=== PATIENT | female | born 1990 | race Caucasian/White ===

== ENCOUNTER → 2016-09-14 | Outpatient (CLI) | payer OTHER ==
--- NOTE | 2016-09-14 16:56 | US ---
EXAMINATION TYPE: US pelvic complete DATE OF EXAM: 09/14/2016 4:39 PM COMPARISON: NONE CLINICAL HISTORY: N83.202 Ovarian Cyst Left Side. Left pelvic pain that has since stopped since her c ycle started TECHNIQUE: TA pelvic ultrasound Date of LMP: 09/08/2016 EXAM MEASUREMENTS: Uterus: 9.6 x 4.7 x 3.3 cm Endometrial Stripe: 0.5 cm Right Ovary: 2.1 x 1.4 x 1.5 cm Left Ovary: 2.3 x 1.8 x 1.4 cm patients bladder was as full as she can get, painful 1. Uterus: Anteverted wnl 2. Endometrium: wnl 3. Right Ovary: wnl 4. Left Ovary: wnl 5. Bilateral Adnexa: wnl 6. Posterior cul-de-sac: wnl IMPRESSION: Ovaries are normal in size. No suspicious ovarian or adnexal mass identified bilaterally. Unremarkable study.
== END | disposition home or self-care (01) ==
LOC: RADUSWWP 16:29
PROVIDERS: ATTEND Family Medicine
DX: N83.202 Unspecified ovarian cyst, left side (principal)
CPT/HCPCS: 76856

== ENCOUNTER → 2016-12-03 | Outpatient (CLI) | payer OTHER ==
[2016-12-03 15:56] LABS: Basophils % (A) 0 %; CH 30.2; CHCM 32.9; Eosinophils # (A) 0.1 k/uL (0-0.7); Eosinophils % (A) 2 %; HCT 38.7 % (34.0-46.0); HDW 2.53; HGB 13.1 gm/dL (11.4-16.0); Luc % (Auto) 2; Lymphocytes # (A) 1.7 k/uL (1.0-4.8); Lymphocytes % (A) 27 %; MCH 31.1 pg (25.0-35.0); MCHC 33.8 g/dL (31.0-37.0); Mean Platelet Volume 6.7; Monocytes # (A) 0.3 k/uL (0-1.0); Monocytes % (A) 4 %; Neutrophils # (A) 4.2 k/uL (1.3-7.7); Neutrophils % (A) 66 %; RDW 12.3 % (11.5-15.5); WBC 6.5 k/uL (3.8-10.6); WBC (Perox) 7.21
== END | disposition home or self-care (01) ==
LOC: LABPAT 15:34
PROVIDERS: ATTEND Obstetrics & Gynecology
DX: Z01.812 Encounter for preprocedural laboratory examination (principal)
CPT/HCPCS: 85025

== ENCOUNTER 2016-12-10 08:50 | Day surgery (SDC) | payer OTHER ==
[2016-12-03 11:40] VITALS: BMI 33.2
[~2016-12-10 08:50] MED LIST: DEXAMETHASONE SOD PHOSPHATE 10 MG/ML 1 ML VIAL IV ONE; LIDOCAINE 1% 20 ML VIAL (10MG/ML) FOR IV START INTRADERMA PRN; ONDANSETRON 4 MG/2 ML VIAL IVP ONE; Pre Op ABX Message 1 EACH MISC MISCELLANE ONE; SCOPOLAMINE 1.5MG/72HR PATCH TRANSDERM ONE
[2016-12-10] MEDS: LACTATED RINGERS 1,000 ML IV SCH ×2 (09:26→10:26)
[2016-12-10 09:38] LABS: Glucose,Whole Blood 89 mg/dL (75-99)
--- NOTE | 2016-12-10 10:18 | P.HPOB ---
History of Present Illness H&P Date: 12/10/16 Chief Complaint: family planning Mery is [age] female who is completed her family planning desires permanent sterilization. Risks/benefits/alternatives to laps have a tubal occlusion were discussed with patient in detail and all questions are answered for her prior to proceeding to the operating room. On physical exam vital signs are stable and afebrile. Heart regular, lungs clear, extremities without pain. Pelvic exam is unremarkable. Abdomen soft and nontender positive bowel sounds are noted. Assessment family planning. Plan laparoscopic tubal occlusion with Filshie clips. Past Medical History Past Medical History: Thyroid Disorder Additional Past Medical History / Comment(s): hx hypoactive thyroid- no meds now History of Any Multi-Drug Resistant Organisms: None Reported Past Surgical History: No Surgical Hx Reported Additional Past Surgical History / Comment(s): wisdom teeth Smoking Status: Never smoker - Past Family History Sister(s) Family Medical History: Neurologic Disorder, Seizure Disorder Additional Family Medical History / Comment(s): cerebral palsy Mother Family Medical History: Diabetes Mellitus, Hypertension, Seizure Disorder Medications and Allergies Home Medications Medication Instructions Recorded Confirmed Type Ibuprofen [Motrin] 800 mg PO TID PRN 12/03/16 12/10/16 History Allergies Allergy/AdvReac Type Severity Reaction Status Date / Time adhesive Allergy Rash/Hives Verified 12/10/16 09:01 Exam Osteopathic Statement: *. No significant issues noted on an osteopathic structural exam other than those noted in the History and Physical/Consult. - Vital Signs Vital signs: Vital Signs Temp Pulse Resp BP Pulse Ox 12/10/16 09:12 98.6 F 74 18 113/62 97
[2016-12-10] MEDS ORDERED: MIDAZOLAM 2 MG/2 ML VIAL ONE (10:23)
[2016-12-10] MEDS ORDERED: VECURONIUM 10 MG VIAL IV ONE (10:23)
[2016-12-10] MEDS ORDERED: PROPOFOL 10 MG/ML 20 ML VIAL IV ONE (10:23)
[2016-12-10] MEDS ORDERED: NEOSTIGMINE 1 MG/ML 10 ML VIAL ONE (10:23)
[2016-12-10] MEDS ORDERED: ROCURONIUM BROMIDE 10 MG/ML 10 ML VIAL IV ONE (10:23)
[2016-12-10] MEDS ORDERED: fentaNYL (PF) 50 MCG/ML 2 ML AMP ONE (10:23)
[2016-12-10] MEDS ORDERED: LIDOCAINE 1% INJ 10MG/ML (20 ML MDV) ONE (10:23)
[2016-12-10] MEDS ORDERED: GLYCOPYRROLATE 0.2 MG/ML 2 ML VIAL ONE (10:23)
[2016-12-10] MEDS ORDERED: KETOROLAC 30 MG/ML 1 ML VIAL ONE (10:23)
[2016-12-10] MEDS ORDERED: BUPIVACAINE (PF) 0.25% 30 ML VIAL SQ ONE (10:30)
--- NOTE | 2016-12-10 10:57 | P.OP ---
Date of Procedure: 12/10/16 Preoperative Diagnosis: Family planning Postoperative Diagnosis: Same Procedure(s) Performed: Laparoscopic tubal occlusion with Filshie clips Implants: Anesthesia: BRENTA Surgeon: Beny Li Estimated Blood Loss (ml): 5 Pathology: none sent Condition: stable Disposition: same day Indications for Procedure: Operative Findings: Normal female anatomy Description of Procedure: Patient was taken to the operating suite where a general anesthetic was found be adequate. She was prepped and draped in the normal sterile fashion placed in dorsal lithotomy position. Initially a speculum was inserted into the vagina and the anterior lip cervix identified and grasped with an Allis clamp. Uterus then sounded 8 cm and a manipulator was inserted without difficulty. Red rubber catheters in used to drain the bladder urine and the remainder of the instruments were removed from vagina. Gloves were changed and attention was turned to the abdominal portion procedure. Approximately 2 mL of quarter percent Marcaine was then injected periumbilically through this injected anesthetic a 5 mm skin incision was made. Through this incision under direct visualization with an optical trocar and sleeve the camera was inserted. Once peritoneal placement was assured gas was left fully insufflate the abdomen and patient was then placed in steep Trendelenburg position. A second 8 mm skin incision was then made in the midline 3 cm above the pubic since this. Second port and sleeve were inserted through that incision again under direct visualization. Uterus was then elevated and patient was fallopian tubes were identified. First the right tube than the left tube had a Filshie clip applied proxy 2-3 cm from uterine cornu. No bleeding is noted from the mesosalpinx therefore instruments are removed and gas allowed to expel from the abdomen. 5 deep breaths were provided during this process. 4-0 Vicryl was then used to close the incision subcuticularly and the remaining 8 mL of quarter percent Marcaine were injected around the incisions. Instruments are then removed from the vagina. Sponge, lap, needle counts were all correct 2. Patient was then taken to the recovery room in stable and satisfactory condition. Plan - Discharge Summary New Discharge Prescriptions: New Acetaminophen-Codeine 300-30mg [Tylenol #3] 1 tab PO Q4H PRN #30 tablet PRN Reason: Pain Ibuprofen [Motrin] 600 mg PO Q6HR PRN #30 tab PRN Reason: Pain No Action Ibuprofen [Motrin] 800 mg PO TID PRN PRN Reason: Pain Discharge Medication List Ibuprofen [Motrin] 800 mg PO TID PRN 12/03/16 [History] Acetaminophen-Codeine 300-30mg [Tylenol #3] 1 tab PO Q4H PRN #30 tablet [Rx] Ibuprofen [Motrin] 600 mg PO Q6HR PRN #30 tab 12/10/16 [Rx] Follow up Appointment(s)/Referral(s): Beny Li DO [Doctor of Osteopathic Medicine] - 1 Week Activity/Diet/Wound Care/Special Instructions: No heavy lifting, limit stairs and driving, and pelvic rest. If any high temperatures, heavy bleeding, or severe pain call my office
[2016-12-10 11:17] VITALS: TEMP 97.5
[2016-12-10] MEDS: HYDROmorphone 1 MG/ML 1 ML SYRINGE IVP PRN ×2 (11:26→11:50)
[2016-12-10] MEDS ORDERED: MEPERIDINE 50 MG/ML SYRINGE IVP ONE (11:55)
[2016-12-10 12:26] VITALS: RESP 16
[2016-12-10] MEDS ORDERED: Acetaminophen-Codeine 300-30mg TAB PO ONE (12:50)
[2016-12-10 14:31] VITALS: BP 114/76; PULSE 85
== END 2016-12-10 14:58 | disposition home or self-care (01) ==
LOC: OR 08:50
PROVIDERS: ATTEND Obstetrics & Gynecology
DX: Z30.2 Encounter for sterilization (principal); Z91.09 Other allergy status, other than to drugs and biological substances
CPT/HCPCS: 81025; 58671; J2250; J1100; J2710; J2175; J2405; J2001; J3010; J1885; J1170; J2704

== ENCOUNTER 2017-06-08 09:12 | Emergency (ER) | payer OTHER ==
[2017-06-08 09:35] VITALS: BP 131/63; PULSE 80; RESP 20; TEMP 98.5
--- NOTE | 2017-06-08 10:21 | ED ---
General Adult HPI - General Chief complaint: Skin/Abscess/Foreign Body Stated complaint: Rash Time Seen by Provider: 06/08/17 10:11 Source: patient Mode of arrival: ambulatory Limitations: no limitations - History of Present Illness Initial comments: This 26-year-old white female presents with a complaint of a skin rash underneath her right arm proximally which is been present for approximately 3 days. There's been minimally itchy. It is consistent with her previous ringworm which she had several years ago. She denies any other rash. No other complaints or modifying factors. - Related Data Home Medications Medication Instructions Recorded Confirmed Ibuprofen [Motrin] 800 mg PO TID PRN 12/03/16 12/10/16 Previous Rx's Medication Instructions Recorded Acetaminophen-Codeine 300-30mg 1 tab PO Q4H PRN #30 tablet 12/10/16 [Tylenol #3] Ibuprofen [Motrin] 600 mg PO Q6HR PRN #30 tab 12/10/16 Econazole 1% Cream [Spectazole] 1 applic TOPICAL BID #15 gram 06/08/17 Allergies Allergy/AdvReac Type Severity Reaction Status Date / Time adhesive Allergy Rash/Hives Verified 06/08/17 09:35 Review of Systems ROS Statement: Those systems with pertinent positive or pertinent negative responses have been documented in the HPI. ROS Other: All systems not noted in ROS Statement are negative. Past Medical History Past Medical History: Thyroid Disorder Additional Past Medical History / Comment(s): hx hypoactive thyroid- no meds now History of Any Multi-Drug Resistant Organisms: None Reported Past Surgical History: Tubal Ligation Additional Past Surgical History / Comment(s): wisdom teeth Past Psychological History: Bipolar, Depression Smoking Status: Never smoker Past Alcohol Use History: None Reported Past Drug Use History: None Reported - Past Family History Sister(s) Family Medical History: Neurologic Disorder, Seizure Disorder Additional Family Medical History / Comment(s): cerebral palsy Mother Family Medical History: Diabetes Mellitus, Hypertension, Seizure Disorder General Exam Limitations: no limitations Skin exam: Present: intact, rash (There is a 3 cm area of mild erythema with well circumscribed borders consistent with ringworm present in the right proximal medial arm.) Course Vital Signs 06/08/17 09:33 Temperature 98.5 F Pulse Rate 80 Respiratory 20 Rate Blood Pressure 131/63 O2 Sat by Pulse 97 Oximetry Medical Decision Making - Medical Decision Making The patient was seen and examined. It is felt as though her rash was consistent with ringworm. She is counseled regarding this and leaves in no distress. Disposition Clinical Impression: Tinea corporis Disposition: HOME SELF-CARE Condition: Good Instructions: Tinea Corporis (ED) Prescriptions: Econazole 1% Cream [Spectazole] 1 applic TOPICAL BID #15 gram Referrals: Luan Lee MD [Primary Care Provider] - 1-2 days Time of Disposition: 10:21
== END 2017-06-08 10:45 | disposition home or self-care (01) ==
LOC: EC 09:12
DX: B35.4 Tinea corporis (principal); Z91.09 Other allergy status, other than to drugs and biological substances
CPT/HCPCS: 99282

== ENCOUNTER 2017-09-26 07:54 | Emergency (ER) | payer OTHER ==
[2017-09-26 08:01] VITALS: BP 116/63; PULSE 71; RESP 18; TEMP 97.6
[2017-09-26] MEDS ORDERED: AMOXICILLIN 500MG STARTER PACK 3 CAP BTL PO STA (08:21)
--- NOTE | 2017-09-26 08:21 | ED ---
ENT HPI - General Chief complaint: ENT Stated complaint: Sore throat Time Seen by Provider: 09/26/17 08:05 Source: patient, RN notes reviewed Mode of arrival: ambulatory Limitations: no limitations - History of Present Illness Initial comments: 27-year-old female emergency from she complaint of sore throat. Patient states started yesterday progressively getting worse. Patient states she feels swollen as painful to swallow but no difficulty denies any shortness breath denies any nasal congestion, headache or dizziness. Patient had no prior tonsillectomy. Denies any nausea vomiting diarrhea constipation. - Related Data Previous Rx's Medication Instructions Recorded Amoxicillin 500 mg PO Q8H #30 capsule 09/26/17 Allergies Allergy/AdvReac Type Severity Reaction Status Date / Time adhesive Allergy Rash/Hives Verified 09/26/17 08:01 Review of Systems ROS Statement: Those systems with pertinent positive or pertinent negative responses have been documented in the HPI. ROS Other: All systems not noted in ROS Statement are negative. Past Medical History Past Medical History: Thyroid Disorder Additional Past Medical History / Comment(s): hx hypoactive thyroid- no meds now History of Any Multi-Drug Resistant Organisms: None Reported Past Surgical History: Tubal Ligation Additional Past Surgical History / Comment(s): wisdom teeth Past Psychological History: Bipolar, Depression Smoking Status: Never smoker Past Alcohol Use History: None Reported Past Drug Use History: None Reported - Past Family History Sister(s) Family Medical History: Neurologic Disorder, Seizure Disorder Additional Family Medical History / Comment(s): cerebral palsy Mother Family Medical History: Diabetes Mellitus, Hypertension, Seizure Disorder General Exam Limitations: no limitations General appearance: alert, in no apparent distress Head exam: Present: atraumatic, normocephalic, normal inspection Eye exam: Present: normal appearance, PERRL, EOMI. Absent: scleral icterus, conjunctival injection, periorbital swelling ENT exam: Present: mucous membranes moist, TM's normal bilaterally, normal external ear exam. Absent: normal oropharynx (Erythematous posterior pharynx) Neck exam: Present: normal inspection, full ROM, lymphadenopathy. Absent: tenderness Respiratory exam: Present: normal lung sounds bilaterally. Absent: respiratory distress, wheezes, rales, rhonchi, stridor Cardiovascular Exam: Present: regular rate, normal rhythm, normal heart sounds. Absent: systolic murmur, diastolic murmur, rubs, gallop, clicks Course Vital Signs 09/26/17 07:58 Temperature 97.6 F Pulse Rate 71 Respiratory 18 Rate Blood Pressure 116/63 O2 Sat by Pulse 97 Oximetry Medical Decision Making - Medical Decision Making 37-year-old female presented for sore throat. Patient has erythema, multiple lymph nodes. Patient we treated for strep pharyngitis. Patient was started on amoxicillin return parameters were discussed. Disposition Clinical Impression: Streptococcal sore throat Disposition: HOME SELF-CARE Condition: Stable Instructions: Strep Throat (ED) Additional Instructions: Please return to the Emergency Department if symptoms worsen or any other concerns. Prescriptions: Amoxicillin 500 mg PO Q8H #30 capsule Is patient prescribed a controlled substance at d/c from ED?: No Referrals: Luan Lee MD [Primary Care Provider] - 1-2 days
== END 2017-09-26 08:32 | disposition home or self-care (01) ==
LOC: EC 07:54
DX: J02.0 Streptococcal pharyngitis (principal); Z91.048 Other nonmedicinal substance allergy status
CPT/HCPCS: 99282

== ENCOUNTER → 2017-11-08 | Outpatient (CLI) | payer OTHER ==
--- NOTE | 2017-11-09 07:37 | US ---
EXAMINATION TYPE: US pelvic complete DATE OF EXAM: 11/08/2017 COMPARISON: US CLINICAL HISTORY: R10.2 Pain in pelvic. TECHNIQUE: Transabdominal sonographic images of the pelvis were acquired. Date of LMP: EXAM MEASUREMENTS: Uterus: 9.8 x 5.5 x 5.6 cm Endometrial Stripe: 0.6 cm Right Ovary: 2.7 x 1.7 x1.9 cm Left Ovary: 2.9 x 1.5 x cm 1. Uterus: Anteverted wnl 2. Endometrium: wnl 3. Right Ovary: wnl 4. Left Ovary: wnl 5. Bilateral Adnexa: small amount of ff in right adnexa 6. Posterior cul-de-sac: wnl IMPRESSION: 1. Small amount of free fluid is seen. Otherwise unremarkable study.
== END | disposition home or self-care (01) ==
LOC: RADUSWWP 15:57
PROVIDERS: ATTEND Family Medicine
DX: R10.2 Pelvic and perineal pain (principal)
CPT/HCPCS: 76856

== ENCOUNTER → 2018-02-08 | Outpatient (CLI) | payer OTHER ==
--- NOTE | 2018-02-08 15:44 | US ---
EXAMINATION TYPE: US transvaginal DATE OF EXAM: 02/08/2018 COMPARISON: Previous dated 11/08/2017 CLINICAL HISTORY: R10.2 Pelvic and perineal pain. TECHNIQUE: Transvaginal sonographic images were ordered Date of LMP: 12/21/17 EXAM MEASUREMENTS: Uterus: 8.2 x 4.9 x 5.2 cm Endometrial Stripe: 0.7 cm Right Ovary: 3.1 x 2.4 x 1.7 cm Left Ovary: obscured by overlying bowel gas 1. Uterus: Anteverted 2. Endometrium: wnl 3. Right Ovary: wnl 4. Left Ovary: Obscured by overlying bowel gas 5. Bilateral Adnexa: wnl 6. Posterior cul-de-sac: wnl IMPRESSION: Limited exam.
== END | disposition home or self-care (01) ==
LOC: RADUSWWP 12:16
PROVIDERS: ATTEND Family Medicine
DX: R10.2 Pelvic and perineal pain (principal)
CPT/HCPCS: 76830

== ENCOUNTER → 2018-05-03 | Outpatient (CLI) | payer OTHER ==
--- NOTE | 2018-05-03 13:39 | XR ---
EXAMINATION TYPE: XR ankle complete LT DATE OF EXAM: 05/03/2018 COMPARISON: NONE HISTORY: Pain FINDINGS: Three views of the ankle demonstrate the ankle mortise to be intact and symmetric. The joint spaces are preserved. The osseous structures are intact. IMPRESSION: 1. No definite acute fracture or dislocation, if symptoms persist follow-up study in 7 to 10 days wou ld be suggested.
== END | disposition home or self-care (01) ==
LOC: RADXRMAIN 13:12
PROVIDERS: ATTEND Physician Assistant
DX: M25.572 Pain in left ankle and joints of left foot (principal)

== ENCOUNTER 2018-06-28 18:35 | Emergency (ER) | payer OTHER ==
[2018-06-28 19:11] VITALS: RESP 18
[2018-06-28 20:45] LABS: Appearance,Urine Cloudy (Clear); Bilirubin,Urine Negative (Negative); Blood,Urine Trace (Negative); Color,Urine Yellow; Glucose,Urine (UA) Negative (Negative); Ketones,Urine Negative (Negative); Leukocyte Esterase,Urine Large (Negative); Mucus,Urine Many /hpf; Nitrite,Urine Negative (Negative); PH, Urine 6.5 (5.0-8.0); Protein,Urine Trace (Negative); RBC,Urine 16 /hpf (0-5); Specific Gravity,Urine 1.024 (1.001-1.035); Squamous Epithelial Cell,Urine 17 /hpf (0-4); Urobilinogen,Urine <2.0 mg/dL (<2.0)
--- NOTE | 2018-06-28 21:04 | ED ---
Female Urogenital HPI - General Chief complaint: Urogenital Stated complaint: Vaginal itch and odor Time Seen by Provider: 06/28/18 19:44 Source: patient, RN notes reviewed Mode of arrival: ambulatory Limitations: no limitations - History of Present Illness Initial comments: 27-year-old female presented emergency from with chief complaint of vaginal itching, vaginal discharge. This has been present for last 2 weeks has an appointment next week ago joint but cannot week. Patient states she is on control secondary to endometriosis. This is new for her. Patient denies any concern for STDs. Patient denies any dysuria hematuria. Last Menstrual Period: 06/10/18 - Related Data Home Medications Medication Instructions Recorded Confirmed [place] 28 1 tab PO DAILY 06/28/18 06/28/18 Previous Rx's Medication Instructions Recorded Fluconazole [Diflucan] 150 mg PO ONCE #2 tab 06/28/18 metroNIDAZOLE [Flagyl] 500 mg PO TID #21 tab 06/28/18 Allergies Allergy/AdvReac Type Severity Reaction Status Date / Time adhesive Allergy Rash/Hives Verified 06/28/18 20:57 Review of Systems ROS Statement: Those systems with pertinent positive or pertinent negative responses have been documented in the HPI. ROS Other: All systems not noted in ROS Statement are negative. Past Medical History Past Medical History: Thyroid Disorder Additional Past Medical History / Comment(s): hx hypoactive thyroid- no meds now History of Any Multi-Drug Resistant Organisms: None Reported Past Surgical History: Tubal Ligation Additional Past Surgical History / Comment(s): wisdom teeth Past Psychological History: Bipolar, Depression Smoking Status: Never smoker Past Alcohol Use History: None Reported Past Drug Use History: None Reported - Past Family History Sister(s) Family Medical History: Neurologic Disorder, Seizure Disorder Additional Family Medical History / Comment(s): cerebral palsy Mother Family Medical History: Diabetes Mellitus, Hypertension, Seizure Disorder General Exam Limitations: no limitations General appearance: alert, in no apparent distress Neck exam: Present: normal inspection. Absent: tenderness, meningismus, lymphadenopathy Respiratory exam: Present: normal lung sounds bilaterally. Absent: respiratory distress, wheezes, rales, rhonchi, stridor Cardiovascular Exam: Present: regular rate, normal rhythm, normal heart sounds. Absent: systolic murmur, diastolic murmur, rubs, gallop, clicks GI/Abdominal exam: Present: soft, normal bowel sounds. Absent: distended, tenderness, guarding, rebound, rigid External exam: Present: normal external exam, other (Exam performed with RN) Speculum exam: Present: vaginal discharge Course Vital Signs 06/28/18 19:07 Temperature 98.3 F Pulse Rate 84 Respiratory 18 Rate Blood Pressure 117/74 O2 Sat by Pulse 99 Oximetry Medical Decision Making - Medical Decision Making 27-year-old female presented for vaginal itching discharge. Patient does have some thick white discharge, concern for candidiasis. Patient also has full or with possible bacterial vaginosis secondary to recent control. Patient will be discharged return parameters were discussed. - Lab Data Lab Results 06/28/18 06/28/18 Range/Units 20:27 20:27 Urine Color Yellow Urine Appearance Cloudy H (Clear) Urine pH 6.5 (5.0-8.0) Ur Specific [place] 1.024 (1.001-1.035) Urine Protein Trace H (Negative) Urine Glucose (UA) Negative (Negative) Urine Ketones Negative (Negative) Urine Blood Trace H (Negative) Urine Nitrite Negative (Negative) Urine Bilirubin Negative (Negative) Urine Urobilinogen <2.0 (<2.0) mg/dL Ur Leukocyte Esterase Large H (Negative) Urine RBC 16 H (0-5) /hpf Ur Squamous Epith Cells 17 H (0-4) /hpf Urine Mucus Many H (None) /hpf Urine HCG, Qual Not Detected (Not Detectd) Disposition Clinical Impression: Vaginitis Disposition: HOME SELF-CARE Condition: Stable Instructions (If sedation given, give patient instructions): Bacterial Vaginosis (ED) Additional Instructions: Please return to the Emergency Department if symptoms worsen or any other concerns. Prescriptions: Fluconazole [Diflucan] 150 mg PO ONCE #2 tab metroNIDAZOLE [Flagyl] 500 mg PO TID #21 tab Is patient prescribed a controlled substance at d/c from ED?: No Referrals: Luan Lee MD [Primary Care Provider] - 1-2 days Time of Disposition: 21:03
[2018-06-28 21:32] VITALS: BP 120/80; PULSE 78; TEMP 98.2
[2018-06-29 14:55] LABS: C. trachomatis,PCR Negative (Neg,Equiv); Chlamydia trachomatis Source Vagina
[2018-06-29 15:01] LABS: N. gonorrhoeae,PCR Negative (Neg,Equiv); Neisseria Source Vagina
== END 2018-06-28 21:32 | disposition home or self-care (01) ==
LOC: EC 18:35
DX: N76.0 Acute vaginitis (principal); N80.9 Endometriosis, unspecified; Z91.09 Other allergy status, other than to drugs and biological substances; Z79.3 Long term (current) use of hormonal contraceptives; Z98.51 Tubal ligation status
CPT/HCPCS: 81001; 81025; 87070; 87086; 87205; 87491; 87591; 87808; 99283

== ENCOUNTER → 2018-09-19 | Outpatient (CLI) | payer OTHER ==
[2018-09-19 13:34] LABS: Basophils % (A) 0 %; Eosinophils # (A) 0.1 k/uL (0-0.7); Eosinophils % (A) 1 %; HCT 38.1 % (34.0-46.0); HGB 12.6 gm/dL (11.4-16.0); Lymphocytes % (A) 27 %; MCHC 33.2 g/dL (31.0-37.0); MCV 90.4 fL (80.0-100.0); Mean Platelet Volume 6.8; Monocytes # (A) 0.2 k/uL (0-1.0); Monocytes % (A) 3 %; Neutrophils % (A) 68 %; Platelet Count 292 k/uL (150-450); RBC 4.22 m/uL (3.80-5.40); RDW 13.3 % (11.5-15.5); WBC 7.4 k/uL (3.8-10.6)
== END | disposition home or self-care (01) ==
LOC: LABWHC1 13:10
PROVIDERS: ATTEND Obstetrics & Gynecology
DX: Z01.812 Encounter for preprocedural laboratory examination (principal); N94.6 Dysmenorrhea, unspecified; N94.10 Unspecified dyspareunia
CPT/HCPCS: 36415; 85025

== ENCOUNTER 2018-09-26 08:12 | Day surgery (SDC) | payer OTHER ==
[2018-09-21 13:20] VITALS: BMI 34.5
--- NOTE | 2018-09-22 16:27 | HP ---
HISTORY AND PHYSICAL DATE OF SURGERY: 09/26/2018 HISTORY OF PRESENT ILLNESS: The patient is a 28-year-old 4, para 3-1-0-4, who presented for evaluation of long-standing pelvic pain. She specifically complains of at least 6 years of fairly significant cyclic pelvic pain and has had multiple different interventions with hormonal therapy such as Implanon, which helped to some extent, but she stopped using it secondary to other side effects. She does have a tubal ligation in place at this time. She additionally tried Depo-Provera but had increasing pain with irregular bleeding. She then changed over to an oral contraceptive pill, with some improvement, but still continues to have significant pain with her periods and in the week leading up to her cycles as well. She additionally complains of pain after intercourse and had initially requested definitive therapy with hysterectomy, as tubal ligation is in place. Insurance has not allowed her to have definitive therapy at this time, and instead we have opted to proceed with diagnostic laparoscopy to evaluate for possible endometriosis and deal with any endometriotic implants found at that time. PAST MEDICAL HISTORY: Significant for: 1. Depression. 2. Possible endometriosis. 3. Hyperthyroidism. 4. Insomnia. SURGICAL HISTORY: Significant only for tubal ligation in 2017; there were no anesthetic concerns. OBSTETRICAL HISTORY: 4, para 3-1-0-4. She had 4 vaginal births, one of which was delivered at approximately 32 weeks. Current method of contraception is tubal ligation. GYNECOLOGIC HISTORY: Unremarkable except as noted in history of present illness. There is no apparent history of infections. FAMILY HISTORY: Noncontributory. SOCIAL HISTORY: The patient is and is a homemaker. She is a nonsmoker and denies any significant alcohol or any other social concerns. CURRENT MEDICATIONS: Current medications include ibuprofen and/or naproxen as well as Sprintec daily. ALLERGIES: NO KNOWN DRUG ALLERGIES. REVIEW OF SYSTEMS: Confined to history of present illness. PHYSICAL EXAMINATION: Vital signs are stable. The patient is afebrile. In general, this is a well-developed, well-nourished white female in no acute distress. HEENT demonstrates PERRLA, EOMI. Her oropharynx is clear. Her thyroid is supple and the neck is supple and without adenopathy. Her heart has a regular rhythm and rate without murmur. Her lungs are clear to auscultation bilaterally in all dominguez. Her abdomen is nondistended, has normoactive bowel sounds, soft, nontender, and without any palpable masses, hepatosplenomegaly or hernias. Her extremities are without any cyanosis, clubbing or edema and are nontender to palpation bilaterally. Her back is without spinal or CVA tenderness. Pelvic examination demonstrates normal external genitalia and BUS with normal vaginal mucosa and cervix. There is no cervical motion tenderness. The uterus is approximately 5 weeks in size, anteverted, mobile, nontender, normal in shape. The adnexa are normal and nontender without mass bilaterally. ASSESSMENT AND PLAN: 1. Chronic pelvic pain. 2. Dysmenorrhea. 3. Dyspareunia. PLAN: Given her multiple attempts with hormonal intervention with only minimal to moderate success, we will proceed with diagnostic and possible operative laparoscopy for potential ablation of endometriotic implants, should they be found. The risks and complications of the procedure have been thoroughly discussed, including the risks for bleeding, bleeding requiring transfusion, infection, and injury to local structures to include the bowel, bladder and ureters. She has understood all these risks and has agreed to proceed. We are scheduled for the morning of 09/26/2018, for the procedure as outlined above, diagnostic and possible operative laparoscopy. MMODL / IJN: [id number] /
[~2018-09-26 08:12] MED LIST changes: +HYDROmorphone 0.5 MG/0.5 ML SYRINGE IVP PRN; -Pre Op ABX Message 1 EACH MISC MISCELLANE ONE; +ceFAZolin IN SWFI 2 GM/20 ML SYRINGE IVP ONE
[2018-09-26 08:36] VITALS: TEMP 97.1
[2018-09-26] MEDS: LACTATED RINGERS 1,000 ML IV SCH ×2 (08:50→10:16)
[2018-09-26] MEDS ORDERED: SUCCINYLCHOLINE CHLORIDE 100 MG/5 ML SYR IV ONE (10:14)
[2018-09-26] MEDS ORDERED: KETOROLAC 30 MG/ML 1 ML VIAL ONE (10:14)
[2018-09-26] MEDS ORDERED: ACETAMINOPHEN IV (For NPO) 1,000 MG/100 ML VIAL ONE (10:14)
[2018-09-26] MEDS ORDERED: LIDOCAINE 1% INJ 10MG/ML (20 ML MDV) ONE (10:14)
[2018-09-26] MEDS ORDERED: MIDAZOLAM 2 MG/2 ML VIAL ONE (10:14)
[2018-09-26] MEDS ORDERED: PROPOFOL 10 MG/ML 20 ML VIAL IV ONE (10:14)
[2018-09-26] MEDS ORDERED: fentaNYL (PF) 50 MCG/ML 2 ML AMP ONE (10:14)
[2018-09-26] MEDS ORDERED: HYDROmorphone (PF) 1 MG/ML ONE (10:14)
[2018-09-26] MEDS ORDERED: BUPIVACAIN-EPI 0.5%-1:200,000 30 ML VIAL SQ ONE (10:52)
[2018-09-26] MEDS ORDERED: Acetaminophen-Codeine 300-30mg TAB PO PRN ×2 (11:05)
[2018-09-26] MEDS ORDERED: SIMETHICONE 80 MG CHEWABLE PO PRN (11:05)
[2018-09-26] MEDS ORDERED: KETOROLAC 30 MG/ML 1 ML VIAL IVP PRN (11:05)
[2018-09-26] MEDS ORDERED: diphenhydrAMINE 50 MG/ML 1 ML VIAL IVP PRN (11:05)
[2018-09-26] MEDS ORDERED: ONDANSETRON 4 MG/2 ML VIAL IVP PRN (11:05)
[2018-09-26] MEDS ORDERED: METOCLOPRAMIDE 5 MG/ML 2 ML VIAL IVP PRN (11:05)
[2018-09-26] MEDS ORDERED: IBUPROFEN 600 MG TAB PO PRN (11:05)
--- NOTE | 2018-09-26 11:12 | P.OP ---
Date of Procedure: 09/26/18 Preoperative Diagnosis: #1. Chronic pelvic pain #2. Dysmenorrhea #3. Dyspareunia Postoperative Diagnosis: Same plus #4. Probable adenomyosis Procedure(s) Performed: #1. Diagnostic laparoscopy Anesthesia: KATHRYN Surgeon: Syed Raya Estimated Blood Loss (ml): 2 IV fluids (ml): 400 Urine output (ml): 25 Pathology: none sent Condition: stable Disposition: PACU Operative Findings: Preoperative pelvic examination demonstrated a 5-6 week retroverted mobile normal uterus that was somewhat boggy in nature. Intraoperatively, the entire pelvis was explored with no evidence of endometriosis noted anywhere. There was a Filshie clip on the right fallopian tube while the left clip was missing though the the tube was clearly occluded with a gap between 2 segments. The clip was not seen anywhere in the pelvis. The ovaries were normal although the left ovary was mildly adhesed to the left sigmoid colon, an unlikely source of pain. The appendix was normal as was the small and large bowel, liver, and diaphragm. There was no pathology noted throughout the pelvis. The uterus did have a typical boggy appearance as well as to palpation with the probe. Description of Procedure: The patient was prepped and draped in usual fashion after general endotracheal anesthesia was administered by the anesthesiologist. A speculum was placed in the anterior lip the cervix grasped with a single-tooth tenaculum allowing placement of an acorn cannula for manipulation. The bladder was drained of approximately 25 mL of clear tobias urine. The patient is a potential candidate for vaginal hysterectomy as there is uterine descensus to the introitus. Attention was turned to the abdomen where a 5 mm incision was made in a pre- existing scar beneath the umbilicus allowing insertion of a 5 mm optical port un marco antonio direct visualization without difficulty. A pneumoperitoneum was then infused. Trendelenburg positioning was utilized in a site was selected in the midline approximately 4-57 m above the pubic symphysis where a pre-existing scar Y appear to a 5 mm incision was made in the transverse plane allowing insertion of a 5 mm trocar under direct visualization without difficulty. The blunt probe was utilized to sweep the bowel from the pelvis and the findings are as noted above. There was no evidence of pathology throughout. There was no evidence of any endometriosis. The uterus did have the typical boggy appearance and texture consistent with probable adenomyosis. The left ovary had a mild adhesion to the sigmoid colon which was left in place as it was not likely a source of pain. The bilateral fallopian tubes were occluded though the left Filshie clip was absent from the tube with a clear Seen between 1 blunt end of tube and the other. Expiration of the upper abdomen demonstrated no pathological findings either. All instrumentation was then removed after evacuating the pneumoperitoneum through the trochars. The skin was reapproximated with interrupted subcuticular stitches of 4-0 Vicryl followed by half-inch Steri- Strips placed with Mastisol. Each incision was infused with approximate 5 mL of half percent Marcaine with epinephrine. Estimated blood loss for the entire ca se was 2 mL or less. There were no complications. All sponge, instrument, and needle counts were correct. The patient tolerated the procedure well and proceeded to the recovery room in stable condition.
[2018-09-26] MEDS ORDERED: LACTATED RINGERS 1,000 ML IV SCH (11:15)
[2018-09-26] MEDS ORDERED: LACTATED RINGERS 1,000 ML IV ONE (11:30)
[2018-09-26 12:49] VITALS: BP 125/74; PULSE 68; RESP 18
== END 2018-09-26 12:50 | disposition home or self-care (01) ==
LOC: OR 08:12
PROVIDERS: ATTEND Obstetrics & Gynecology
DX: G89.29 Other chronic pain (principal); R10.2 Pelvic and perineal pain; N94.6 Dysmenorrhea, unspecified; N94.10 Unspecified dyspareunia; E05.90 Thyrotoxicosis, unspecified without thyrotoxic crisis or storm; F32.9 Major depressive disorder, single episode, unspecified; G47.00 Insomnia, unspecified; Z98.51 Tubal ligation status; Z79.1 Long term (current) use of non-steroidal anti-inflammatories (NSAID); Z79.3 Long term (current) use of hormonal contraceptives; Z91.09 Other allergy status, other than to drugs and biological substances
CPT/HCPCS: 81025; 49320; J2250; J1100; J2405; J2001; J3010; J1885; J1170; J0131; J0330; J2704; J0690

== ENCOUNTER → 2018-11-28 | Outpatient (CLI) | payer OTHER ==
[2018-11-28 14:31] LABS: Basophils % (A) 0 %; Eosinophils # (A) 0.1 k/uL (0-0.7); Eosinophils % (A) 1 %; HCT 36.8 % (34.0-46.0); HGB 12.1 gm/dL (11.4-16.0); Lymphocytes # (A) 1.8 k/uL (1.0-4.8); Lymphocytes % (A) 28 %; MCH 29.5 pg (25.0-35.0); MCV 89.5 fL (80.0-100.0); Mean Platelet Volume 6.8; Monocytes # (A) 0.2 k/uL (0-1.0); Monocytes % (A) 3 %; Neutrophils # (A) 4.3 k/uL (1.3-7.7); Neutrophils % (A) 67 %; Platelet Count 281 k/uL (150-450); RBC 4.11 m/uL (3.80-5.40); RDW 13.2 % (11.5-15.5); WBC 6.4 k/uL (3.8-10.6)
[2018-11-28 14:39] LABS: African American GFR (CKD) >90 (>60 ml/min/1.73 sqM); Anion Gap 10 mmol/L; Blood Urea Nitrogen 13 mg/dL (7-17); Carbon Dioxide 27 mmol/L (22-30); Chloride 102 mmol/L (98-107); Glucose 116 mg/dL (74-99); Potassium 3.8 mmol/L (3.5-5.1); Sodium 139 mmol/L (137-145)
== END | disposition home or self-care (01) ==
LOC: LABPAT 13:38
PROVIDERS: ATTEND Obstetrics & Gynecology
DX: Z01.812 Encounter for preprocedural laboratory examination (principal)
CPT/HCPCS: 36415; 80051; 82565; 82947; 84520; 85025; 87086

== ENCOUNTER 2018-12-05 07:29 | Day surgery (SDC) | payer OTHER ==
--- NOTE | 2018-12-01 11:21 | HP ---
HISTORY AND PHYSICAL DATE OF SERVICE: Dictation is done on December 01, 2018 for surgery on December 05, 2018. HISTORY OF PRESENT ILLNESS: The patient is a 28-year-old 4, para 3-1-0-4, who initially presented in consultation for a long-standing history of significant cyclic pelvic pain and severe dysmenorrhea. She has had multiple interventions including attempts at Nexplanon and as well as OCPs. She additionally tried Depo-Provera, which caused significantly increased pain and irregular bleeding. The pill provided some improvement, but still continued to have significant pain with her periods as well as ongoing dyspareunia. She has had a tubal ligation done in the past and recently underwent a diagnostic laparoscopy in an attempt to diagnose the cause. There was no evidence of endometriosis at that time, but there was what appeared to be significant adenomyosis from the shape and texture of the uterus. She has requested definitive therapy with hysterectomy and is a good candidate for a vaginal approach. PAST MEDICAL HISTORY: Significant for depression as well as hyperthyroidism and insomnia. She had a presumptive diagnosis of endometriosis, which was not confirmed at laparoscopy. PAST SURGICAL HISTORY: Significant for tubal ligation in 2017 and diagnostic laparoscopy approximately 2 months ago as noted above. There were no anesthetic concerns. OBSTETRICAL HISTORY: 4, para 3-1-0-4 with 3 term deliveries and one 32 week delivery, all of which were vaginal and without complications aside from one being in nature. Current method of contraception is tubal ligation. GYNECOLOGIC HISTORY: Unremarkable with no history of any infections to include STDs. FAMILY HISTORY: Noncontributory. SOCIAL HISTORY: The patient is and is a nonsmoker. She is a homemaker and denies any other social concerns. CURRENT MEDICATIONS INCLUDE: 1. Naproxen and/or ibuprofen as needed. 2. Sprintec on a daily basis all in attempt to control the dysmenorrhea. ALLERGIES: No known drug allergies. REVIEW OF SYSTEMS: Confined to history of present illness. PHYSICAL EXAMINATION: Vital signs are stable. The patient is afebrile. In general, this is a well- developed, well-nourished white female in no acute distress. HEENT: Demonstrates PERRLA, EOMI. NECK: Supple without adenopathy. Her heart has a regular rhythm and rate without murmur. Her lungs are clear to auscultation bilaterally in all dominguez. Her back is without spinal or CVA tenderness. Her abdomen is nondistended, has normoactive bowel sounds, soft, nontender, without any palpable masses aside from the uterine fundus. Her extremities are without any cyanosis, clubbing, or edema and are nontender to palpation bilaterally. Pelvic examination demonstrates normal external genitalia and BUS with normal vaginal mucosa and cervix. There is no cervical motion tenderness. Uterus is approximately 5 weeks in size, midline to slightly anteverted, mobile, nontender, and normal in shape. There is adequate descensus for a vaginal hysterectomy. Rectovaginal examination is deferred. ASSESSMENT AND PLAN: 1. Severe dysmenorrhea. 2. Dyspareunia: Given the longstanding nature of this discomfort as well as her history of tubal ligation and lack of desire for further childbearing, the most logical approach is definitive therapy with hysterectomy. She is a good candidate for a vaginal approach and this is the procedure that has been scheduled. The risks and complications of the procedure have been thoroughly discussed including the risks for bleeding, bleeding requiring transfusion, infection, and injury to local structures. This specifically includes risks for injury to the bowel, bladder, and ureters. We discussed the typical hospital and postoperative courses as well. She has understood all this and agreed to proceed. MMODL / IJN: [id number] /
[~2018-12-05 07:29] MED LIST changes: -HYDROmorphone 0.5 MG/0.5 ML SYRINGE IVP PRN; +ONDANSETRON 4 MG/2 ML VIAL IVP PRN; -ceFAZolin IN SWFI 2 GM/20 ML SYRINGE IVP ONE
[2018-12-05] MEDS: LACTATED RINGERS 1,000 ML IV SCH ×4 (08:35→20:03)
[2018-12-05] MEDS ORDERED: MIDAZOLAM (PF) 2 MG/2 ML VIAL IVP ONE (08:51)
[2018-12-05] MEDS ORDERED: fentaNYL (PF) 50 MCG/ML 2 ML AMP IVP ONE (08:51)
[2018-12-05] MEDS ORDERED: PROPOFOL 10 MG/ML 20 ML VIAL IV ONE (08:56)
[2018-12-05] MEDS ORDERED: SUCCINYLCHOLINE CHLORIDE 100 MG/5 ML SYR IV ONE (08:56)
[2018-12-05] MEDS ORDERED: fentaNYL (PF) 50 MCG/ML 2 ML AMP ONE (08:56)
[2018-12-05] MEDS ORDERED: MORPHINE SULFATE (PF) 0.3 MG/0.3 ML SYR ONE (08:56)
[2018-12-05] MEDS ORDERED: LIDOCAINE 1% INJ 10MG/ML (20 ML MDV) ONE (08:56)
[2018-12-05] MEDS ORDERED: VASOPRESSIN 20 UNIT/ML 1 ML VIAL IV ONE ×2 (09:07→09:34)
[2018-12-05] MEDS ORDERED: BACITRACIN 500 UNIT/GM OINT 28.4 GM TUBE TOPICAL ONE (09:07)
[2018-12-05] MEDS ORDERED: diphenhydrAMINE 50 MG/ML 1 ML VIAL IVP PRN ×2 (09:23→10:37)
[2018-12-05] MEDS ORDERED: ZOLPIDEM 5 MG TAB PO PRN (09:23)
[2018-12-05] MEDS ORDERED: Acetaminophen-Codeine 300-30mg TAB PO PRN ×2 (09:23)
[2018-12-05] MEDS ORDERED: METOCLOPRAMIDE 5 MG/ML 2 ML VIAL IVP PRN (09:23)
[2018-12-05] MEDS ORDERED: SIMETHICONE 80 MG CHEWABLE PO PRN (09:23)
--- NOTE | 2018-12-05 10:15 | P.OP ---
Date of Procedure: 12/05/18 Preoperative Diagnosis: #1. Severe dysmenorrhea #2. Dyspareunia #3. Chronic pelvic pain Postoperative Diagnosis: Same Procedure(s) Performed: Vaginal hysterectomy Anesthesia: KATHRYN Surgeon: Syed Raya Estate Manager #1: Kat Garcia Estimated Blood Loss (ml): 75 IV fluids (ml): 400 Urine output (ml): 40 Pathology: other (Uterus with cervix) Condition: stable Disposition: PACU Operative Findings: Preoperative pelvic examination reconfirmed a roughly 5 week retroverted mobile normal shaped uterus with normal adnexa bilaterally. Intraoperatively, the bilateral ovaries were seen and normal as previously noted at laparoscopy. The uterus did have the typical boggy texture consistent with probable adenomyosis. Description of Procedure: The patient was prepped and draped in usual fashion after general endotracheal anesthesia was administered by the anesthesiologist. Weighted speculum was placed and the cervix grasped with a single-tooth tenaculum after draining the bladder approximately 50 mL of clear tobias urine. The cervical vaginal mucosa was infused with diluted vasopressin solution circumferentially and then opened sharply with a scalpel. The mucosa was reflected distally both bluntly and sharply. The posterior peritoneum was identified and incised sharply with the Waddell scissors to enter the abdominal cavity. A stitch of 2-0 Vicryl was placed in the posterior peritoneum for later use. The short weighted speculum was replaced with the long weighted speculum and the mucosa further reflected bluntly. Uterosacral ligaments on each side were clamped with curved Yesica- Roxana clamps, cut, and suture-ligated with a transfixion stitch of 0 Vicryl. Serial bites were taken up the cardinal ligaments on each side using curved Yesica-Roxana clamps, each bite was cut and suture-ligated with a transfixion stitch of 0 Vicryl. After several bites on each side, the uterus was inverted posteriorly to identify the anterior peritoneum, which was opened sharply with the Bovie. This isolated the utero-ovarian pedicles on each side. Each was clamped with a curved Yesica-Roxana clamp, cut, and suture-ligated with a transfixion stitch of 0 Vicryl followed by a free tie of 0 Vicryl. On the patient's right side the clamp slipped and required placement of a second clamp behind it which controlled all bleeding and vessels. Careful examination of all of the pedicles once secured demonstrated excellent hemostasis. The long weighted speculum was replaced with a short weighted speculum and the previously placed stitch of 2-0 Vicryl was utilized to close the parietal peritoneum in a pursestring fashion. There was some moderate ongoing bleeding along the cuff edge at the right uterosacral ligament which was made mostly hemostatic with the Bovie. The bilateral uterosacral ligaments were passed through the contralateral ligament and vaginal mucosa and tied down in a modified Preciado's culdoplasty. The intervening open vaginal mucosa was closed with interrupted [id number] stitches of 0 Vicryl. Estimated blood loss for the case was approximate 75 mL. There were no complications. All sponge, instrument, and needle counts were correct. The patient tolerated the procedure well and proceeded to the recovery room in stable condition.
[2018-12-05] MEDS ORDERED: NALOXONE 0.4 MG/ML 1 ML VIAL IV PRN (10:37)
[2018-12-05] MEDS ORDERED: NALBUPHINE 10 MG/ML (1 ML AMP) IV PRN (10:37)
[2018-12-05] MEDS ORDERED: HYDROmorphone 0.5 MG/0.5 ML SYRINGE IVP PRN (10:37)
[2018-12-05 10:45] VITALS: RESP 16
[2018-12-05] MEDS: HYDROmorphone 0.5 MG/0.5 ML SYRINGE IVP PRN ×2 (10:56→11:01)
[2018-12-05] MEDS: KETOROLAC 30 MG/ML 1 ML VIAL IVP SCH ×2 (11:14→12:12)
[2018-12-05 12:00] VITALS: BMI 34.7
[2018-12-05] MEDS ORDERED: KETOROLAC 30 MG/ML 1 ML VIAL IVP PRN (18:23)
[2018-12-05] MEDS ORDERED: SENNOSIDES-DOCUSATE SODIUM 1 EACH TAB PO SCH (21:00)
[2018-12-06] MEDS: LACTATED RINGERS 1,000 ML IV SCH (06:34)
[2018-12-06 07:08] LABS: Basophils % (A) 0 %; Eosinophils % (A) 0 %; HCT 35.8 % (34.0-46.0); HGB 11.6 gm/dL (11.4-16.0); Lymphocytes # (A) 1.2 k/uL (1.0-4.8); Lymphocytes % (A) 18 %; MCH 30.2 pg (25.0-35.0); MCHC 32.6 g/dL (31.0-37.0); MCV 92.9 fL (80.0-100.0); Mean Platelet Volume 6.4; Monocytes # (A) 0.3 k/uL (0-1.0); Monocytes % (A) 5 %; Neutrophils # (A) 5.3 k/uL (1.3-7.7); Neutrophils % (A) 76 %; Platelet Count 281 k/uL (150-450); RBC 3.85 m/uL (3.80-5.40); RDW 12.5 % (11.5-15.5)
--- NOTE | 2018-12-06 07:17 | P.PN ---
Progress Note - Text Date:[12/06/2018] Time:[0708] The patient is status post vaginal hysterectomy. Vital signs stable VAS:[0-10] Patient has no complaints of pain. The patient incurred some minimal itching yesterday, this itching is now subsiding. Pain meds to be managed by service.
[2018-12-06 08:56] VITALS: BP 89/50; PULSE 71; TEMP 97.9
--- NOTE | 2018-12-06 08:57 | P.DS ---
Providers Expected date of discharge: 12/06/18 Attending physician: Syed Raya Primary care physician: Luan Lee - Discharge Diagnosis(es) (1) Chronic pelvic pain in female Current Visit: Yes Status: Acute (2) Dysmenorrhea Current Visit: Yes Status: Acute (3) Dyspareunia Current Visit: Yes Status: Acute Hospital Course: The patient is a 28-year-old 4 para 07/16/2003 admitted for vaginal hysterectomy with a long-standing history of chronic pelvic pain which is cyclic in nature with severe dysmenorrhea as well as dyspareunia. She has undergone a tubal ligation and requested definitive therapy. She was therefore taken the op erating room where she underwent vaginal hysterectomy and an incompetent fashion. Her postoperative course has been unremarkable with vital signs remaining stable and her temperature was afebrile throughout. She was deemed stable for discharge on postoperative day #1 and was discharged home to follow- up in the office in 2 weeks for recheck and 6 weeks routinely. Discharge instructions included calling for any significantly increased vaginal bleeding, abdominal pain, fever, GI complaints, urinary complaints, or anything else that concerned her. She was additionally instructed to have nothing in the vagina for at least 6 weeks time to include intercourse and to abstain from any heavy lifting over the next several weeks as well. She was last instructed to do no driving until off of all pain medications or 2 weeks' time, whichever came first. She understood her instructions and agrees follow up as noted above. Discharge medications included continuation of any normal home medications as well as a prescription for Tylenol 3, 1-2 by mouth every 6 hours when necessary pain, #20 dispensed with no refills. Discharge hemoglobin and hematocrit were 11.6 and 35.8 respectively. Procedures: #1. Vaginal hysterectomy Patient Condition at Discharge: Good Plan - Discharge Summary Discharge Rx Participant: Yes New Discharge Prescriptions: No Action Norgestimate-Ethinyl Estradiol [Sprintec 28 Day Tablet] 1 tab PO DAILY Ibuprofen [Motrin] 800 mg PO DIRECTED PRN PRN Reason: Pain Discharge Medication List Ibuprofen [Motrin] 800 mg PO DIRECTED PRN 09/21/18 [History] Norgestimate-Ethinyl Estradiol [Sprintec 28 Day Tablet] 1 tab PO DAILY 09/21/18 [History] Follow up Appointment(s)/Referral(s): Syed Raya MD [STAFF PHYSICIAN] - 2 Weeks Discharge Disposition: HOME SELF-CARE
[2018-12-06] MEDS ORDERED: ACETAMINOPHEN TAB 325 MG TAB PO PRN (09:26)
[2018-12-06] MEDS ORDERED: KETOROLAC 30 MG/ML 1 ML VIAL IVP PRN (18:00)
[2018-12-07] MEDS ORDERED: KETOROLAC 30 MG/ML 1 ML VIAL IVP PRN (11:00)
[2018-12-07] MEDS ORDERED: IBUPROFEN 600 MG TAB PO PRN (11:00)
== END 2018-12-06 13:15 | disposition home or self-care (01) ==
LOC: OR 07:29 → 4FBP 10:21 → OR 12-06 13:15
PROVIDERS: ATTEND Obstetrics & Gynecology
DX: N72 Inflammatory disease of cervix uteri (principal); N94.6 Dysmenorrhea, unspecified; E03.9 Hypothyroidism, unspecified; F32.9 Major depressive disorder, single episode, unspecified; G47.00 Insomnia, unspecified; Z79.3 Long term (current) use of hormonal contraceptives; Z98.51 Tubal ligation status
CPT/HCPCS: 58260; 81025; 86900; 86901; 85025; 86850; 88307; J1100; J0690; J2405; J2001; J2274; J3010; J1885; J0330; J2704; J1170; J2250

== ENCOUNTER → 2019-05-26 | Outpatient (CLI) | payer OTHER ==
[2019-05-26 18:25] LABS: HIV 1 AB Non-Reactive (Non-Reactive); HIV 2 AB Non-Reactive (Non-Reactive); HIV AB P24 Non-Reactive (Non-Reactive); HIV P24 AG Non-Reactive (Non-Reactive)
[2019-05-26 19:13] LABS: Hepatitis A Antibody IgM Non-Reactive (Non-Reactive); Hepatitis B Core IgM Non-Reactive (Non-Reactive); Hepatitis B Surface Antigen Non-Reactive (Non-Reactive); Hepatitis C IgG Antibody Non-Reactive (Non-Reactive)
[2019-05-28 14:37] LABS: C. trachomatis,PCR Negative (Neg,Equiv); Chlamydia trachomatis Source Urine; N. gonorrhoeae,PCR Negative (Neg,Equiv); Neisseria Source Urine
[2019-05-29 05:55] LABS: Herpes simplex I and/or II IgM 0.71 INDEX (<=0.90); Herpes simplex IgG I Ab 24.4 (< or = 0.90); Herpes simplex IgG II Ab 0.17 (< or = 0.90)
== END | disposition home or self-care (01) ==
LOC: LABWHC1 10:52
PROVIDERS: ATTEND Midwife
DX: Z11.3 Encounter for screening for infections with a predominantly sexual mode of transmission (principal); Z11.4 Encounter for screening for human immunodeficiency virus [HIV]
CPT/HCPCS: 36415; 80074; 86694; 86695; 86696; 86780; 87390; 87491; 87591

== ENCOUNTER 2019-06-28 12:46 | Emergency (ER) | payer OTHER ==
[2019-06-28 13:47] LABS: Basophils % (A) 0 %; Eosinophils # (A) 0.1 k/uL (0-0.7); Eosinophils % (A) 1 %; HCT 38.5 % (34.0-46.0); HGB 12.7 gm/dL (11.4-16.0); Lymphocytes # (A) 1.5 k/uL (1.0-4.8); Lymphocytes % (A) 19 %; MCH 31.3 pg (25.0-35.0); MCHC 33.1 g/dL (31.0-37.0); MCV 94.8 fL (80.0-100.0); Mean Platelet Volume 6.8; Monocytes # (A) 0.3 k/uL (0-1.0); Monocytes % (A) 3 %; Neutrophils # (A) 5.6 k/uL (1.3-7.7); Neutrophils % (A) 74 %; Platelet Count 415 k/uL (150-450); RBC 4.06 m/uL (3.80-5.40); RDW 12.9 % (11.5-15.5); WBC 7.6 k/uL (3.8-10.6)
[2019-06-28 13:57] LABS: Appearance,Urine Clear (Clear); Bacteria,Urine Rare /hpf; Bilirubin,Urine Negative (Negative); Blood,Urine Negative (Negative); Color,Urine Yellow; Glucose,Urine (UA) Negative (Negative); Ketones,Urine Negative (Negative); Leukocyte Esterase,Urine Moderate (Negative); Mucus,Urine Many /hpf; Nitrite,Urine Negative (Negative); PH, Urine 6.5 (5.0-8.0); Protein,Urine Negative (Negative); RBC,Urine 3 /hpf (0-5); Specific Gravity,Urine 1.021 (1.001-1.035); Squamous Epithelial Cell,Urine 4 /hpf (0-4); Urobilinogen,Urine <2.0 mg/dL (<2.0); WBC,Urine 23 /hpf (0-5)
[2019-06-28 14:22] LABS: ALT 49 U/L (4-34); AST 30 U/L (14-36); African American GFR (CKD) >90 (>60 ml/min/1.73 sqM); Alkaline Phosphatase 65 U/L (38-126); Amylase 66 U/L (30-110); Anion Gap 7 mmol/L; Blood Urea Nitrogen 16 mg/dL (7-17); Calcium 9.2 mg/dL (8.4-10.2); Carbon Dioxide 29 mmol/L (22-30); Chloride 104 mmol/L (98-107); Glucose 87 mg/dL (74-99); Non-African American GFR(CKD) >90 (>60 ml/min/1.73 sqM); Potassium 4.3 mmol/L (3.5-5.1); Sodium 140 mmol/L (137-145); Total Bilirubin 0.6 mg/dL (0.2-1.3); Total Protein 6.9 g/dL (6.3-8.2)
[2019-06-28 14:34] VITALS: BP 113/73; PULSE 69; RESP 16; TEMP 97.9
[2019-06-28] MEDS ORDERED: CEPHALEXIN 500MG STARTER PACK 4 CAP BTL PO STA (15:25)
--- NOTE | 2019-06-28 15:27 | ED ---
Abdominal Pain HPI - General Chief Complaint: Abdominal Pain Stated Complaint: nausea, aches, abd pain Time Seen by Provider: 06/28/19 13:24 Source: patient Mode of arrival: ambulatory Limitations: no limitations - History of Present Illness Initial Comments: 28-year-old female presenting for nausea diarrhea abdominal discomfort. Patient states that she has nausea and diarrhea but she feels this is due to nerves. She states she has had a lot of life stressors and states she knows this is the cause. Patient states she is more concerned about the lower midline pelvic pain she states it feels similar to when she's had a tooth infection the past she states she has thick white discharge. Patient states she cannot rule out a sexually transmitted disease as she has been sexually active. She states this is one of her main concerns. Patient states she doesn't have anyone that has been positive for STDs any particular reason to be worried she states that she truly feels like she is a hypochondriac. Patient denies chest pain or SOB. Patient denies fevers, hematochezia or vomiting patient denies stating she has had a hysterectomy. Upon arrival patient appears well, no signs of acute distress. - Related Data Home Medications Medication Instructions Recorded Confirmed Ibuprofen [Motrin] 800 mg PO DIRECTED PRN 09/21/18 11/30/18 Norgestimate-Ethinyl Estradiol 1 tab PO DAILY 09/21/18 12/05/18 [Sprintec 28 Day Tablet] Previous Rx's Medication Instructions Recorded Cephalexin [Keflex] 500 mg PO Q12HR 5 Days #10 cap 06/28/19 Fluconazole [Diflucan] 150 mg PO ONCE 1 Days #1 tab 06/28/19 Allergies Allergy/AdvReac Type Severity Reaction Status Date / Time adhesive Allergy Rash/Hives Verified 11/30/18 09:44 Review of Systems ROS Statement: Those systems with pertinent positive or pertinent negative responses have been documented in the HPI. ROS Other: All systems not noted in ROS Statement are negative. Past Medical History Past Medical History: No Reported History Additional Past Medical History / Comment(s): hx hypoactive thyroid- no meds now History of Any Multi-Drug Resistant Organisms: None Reported Past Surgical History: Hysterectomy, Tubal Ligation Additional Past Surgical History / Comment(s): wisdom teeth Past Psychological History: Bipolar, Depression Smoking Status: Never smoker Past Alcohol Use History: Occasional Past Drug Use History: None Reported - Past Family History Sister(s) Family Medical History: Neurologic Disorder, Seizure Disorder Additional Family Medical History / Comment(s): cerebral palsy Mother Family Medical History: Deep Vein Thrombosis (DVT) General Exam - General Exam Comments Initial Comments: General: The patient is awake and alert, in no distress, and does not appear acutely ill. Eye: +3 mm pupils are equal, round and reactive to light, extra-ocular movements are intact. No nystagmus. There is normal conjunctiva bilaterally. No signs of icterus. Cardiovascular: There is a regular rate and rhythm. No murmur, rub or gallop is appreciated. Respiratory: Lungs are clear to auscultation, respirations are non-labored, breath sounds are equal. No wheezes, stridor, rales, or rhonchi. Gastrointestinal: Soft, non-distended, mild tenderness over superior bladder margin, remainign abdomen is nontender without masses or organomegaly noted. There is no rebound or guarding present. No CVA tenderness. Pelvic: There is no external lesions, thick white discharge without odor, no cervical motion or adnexal tenderness. Musculoskeletal: Normal ROM, no tenderness. Strength 5/5. Sensation intact. Radial pulses equal bilaterally 2+. Neurological: A&O x 3. CN II-XII intact grossly, There are no obvious motor or sensory deficits. Coordination appears grossly intact. Speech is normal. Skin: Skin is warm and dry and no rashes or lesions are noted. Psychiatric: Cooperative, appropriate mood & affect, normal judgment. Limitations: no limitations Course Vital Signs 06/28/19 06/28/19 13:11 14:30 Temperature 97.6 F 97.9 F Pulse Rate 71 69 Respiratory 18 16 Rate Blood Pressure 114/69 113/73 O2 Sat by Pulse 97 100 Oximetry Medical Decision Making - Medical Decision Making 28-year-old female presenting today for chief complaint of vaginal discharge concern for yeast wants testing STI. He edmond benign abdominal examination. Patient states that she believes the diarrhea and nausea secondary to nurse. Patient denies any chest pain shortness of breath. Patient appears well on arrival she is very pleasant laboratory studies are stable. Pelvic exam revealed findings consistent with drake vaginitis. Patient be treated with Diflucan. STI testing pending. Discussed case attending provider Dr. 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 - Lab Data Result diagrams: 06/28/19 13:37 06/28/19 13:37 Lab Results 06/28/19 06/28/19 06/28/19 Range/Units 13:30 13:30 13:37 WBC (3.8-10.6) k/uL RBC (3.80-5.40) m/uL Hgb (11.4-16.0) gm/dL Hct (34.0-46.0) % MCV (80.0-100.0) fL MCH (25.0-35.0) pg MCHC (31.0-37.0) g/dL RDW (11.5-15.5) % Plt Count (150-450) k/uL Neutrophils % % Lymphocytes % % Monocytes % % Eosinophils % % Basophils % % Neutrophils # (1.3-7.7) k/uL Lymphocytes # (1.0-4.8) k/uL Monocytes # (0-1.0) k/uL Eosinophils # (0-0.7) k/uL Basophils # (0-0.2) k/uL Sodium 140 (137-145) mmol/L Potassium 4.3 (3.5-5.1) mmol/L Chloride 104 (98-107) mmol/L Carbon Dioxide 29 (22-30) mmol/L Anion Gap 7 mmol/L BUN 16 (7-17) mg/dL Creatinine 0.62 (0.52-1.04) mg/dL Est GFR (CKD-EPI)AfAm >90 (>60 ml/min/1.73 sqM) Est GFR (CKD-EPI)NonAf >90 (>60 ml/min/1.73 sqM) Glucose 87 (74-99) mg/dL Calcium 9.2 (8.4-10.2) mg/dL Total Bilirubin 0.6 (0.2-1.3) mg/dL AST 30 (14-36) U/L ALT 49 H (4-34) U/L Alkaline Phosphatase 65 (38-126) U/L Total Protein 6.9 (6.3-8.2) g/dL Albumin 4.0 (3.5-5.0) g/dL Amylase 66 (30-110) U/L Lipase 153 (23-300) U/L Urine Color Yellow Urine Appearance Clear (Clear) Urine pH 6.5 (5.0-8.0) Ur Specific [place] 1.021 (1.001-1.035) Urine Protein Negative (Negative) Urine Glucose (UA) Negative (Negative) Urine Ketones Negative (Negative) Urine Blood Negative (Negative) Urine Nitrite Negative (Negative) Urine Bilirubin Negative (Negative) Urine Urobilinogen <2.0 (<2.0) mg/dL Ur Leukocyte Esterase Moderate H (Negative) Urine RBC 3 (0-5) /hpf Urine WBC 23 H (0-5) /hpf Ur Squamous Epith Cells 4 (0-4) /hpf Urine Bacteria Rare H (None) /hpf Urine Mucus Many H (None) /hpf Urine HCG, Qual Not Detected (Not Detectd) Trichomonas Ag (Rapid) (Negative) 06/28/19 06/28/19 Range/Units 13:37 15:27 WBC 7.6 (3.8-10.6) k/uL RBC 4.06 (3.80-5.40) m/uL Hgb 12.7 (11.4-16.0) gm/dL Hct 38.5 (34.0-46.0) % MCV 94.8 (80.0-100.0) fL MCH 31.3 (25.0-35.0) pg MCHC 33.1 (31.0-37.0) g/dL RDW 12.9 (11.5-15.5) % Plt Count 415 (150-450) k/uL Neutrophils % 74 % Lymphocytes % 19 % Monocytes % 3 % Eosinophils % 1 % Basophils % 0 % Neutrophils # 5.6 (1.3-7.7) k/uL Lymphocytes # 1.5 (1.0-4.8) k/uL Monocytes # 0.3 (0-1.0) k/uL Eosinophils # 0.1 (0-0.7) k/uL Basophils # 0.0 (0-0.2) k/uL Sodium (137-145) mmol/L Potassium (3.5-5.1) mmol/L Chloride (98-107) mmol/L Carbon Dioxide (22-30) mmol/L Anion Gap mmol/L BUN (7-17) mg/dL Creatinine (0.52-1.04) mg/dL Est GFR (CKD-EPI)AfAm (>60 ml/min/1.73 sqM) Est GFR (CKD-EPI)NonAf (>60 ml/min/1.73 sqM) Glucose (74-99) mg/dL Calcium (8.4-10.2) mg/dL Total Bilirubin (0.2-1.3) mg/dL AST (14-36) U/L ALT (4-34) U/L Alkaline Phosphatase (38-126) U/L Total Protein (6.3-8.2) g/dL Albumin (3.5-5.0) g/dL Amylase (30-110) U/L Lipase (23-300) U/L Urine Color Urine Appearance (Clear) Urine pH (5.0-8.0) Ur Specific [place] (1.001-1.035) Urine Protein (Negative) Urine Glucose (UA) (Negative) Urine Ketones (Negative) Urine Blood (Negative) Urine Nitrite (Negative) Urine Bilirubin (Negative) Urine Urobilinogen (<2.0) mg/dL Ur Leukocyte Esterase (Negative) Urine RBC (0-5) /hpf Urine WBC (0-5) /hpf Ur Squamous Epith Cells (0-4) /hpf Urine Bacteria (None) /hpf Urine Mucus (None) /hpf Urine HCG, Qual (Not Detectd) Trichomonas Ag (Rapid) Positive H (Negative) Disposition Clinical Impression: Yeast infection, Abdominal pain, UTI (urinary tract infection), Nausea, Diarrhea Disposition: HOME SELF-CARE Condition: Good Instructions (If sedation given, give patient instructions): Yeast Infection (ED), Abdominal Pain (ED) Additional Instructions: Please use medication as discussed. Please follow-up with family doctor in the next 2 days. Please return to emergency room if the symptoms increase or worsen or for any other concerns. Prescriptions: Fluconazole [Diflucan] 150 mg PO ONCE 1 Days #1 tab Cephalexin [Keflex] 500 mg PO Q12HR 5 Days #10 cap Is patient prescribed a controlled substance at d/c from ED?: No Referrals: Luan Lee MD [Primary Care Provider] - 1-2 days Time of Disposition: 15:25
[2019-06-30 07:36] LABS: C. trachomatis,PCR Negative (Neg,Equiv); Chlamydia trachomatis Source Vagina
[2019-06-30 07:55] LABS: N. gonorrhoeae,PCR Negative (Neg,Equiv); Neisseria Source Vagina
== END 2019-06-28 16:06 | disposition home or self-care (01) ==
LOC: EC 12:46
DX: B37.9 Candidiasis, unspecified (principal); N39.0 Urinary tract infection, site not specified; R19.7 Diarrhea, unspecified; Z79.3 Long term (current) use of hormonal contraceptives; Z90.710 Acquired absence of both cervix and uterus; Z91.048 Other nonmedicinal substance allergy status; Z98.51 Tubal ligation status
CPT/HCPCS: 36415; 80053; 81001; 81025; 82150; 83690; 85025; 87070; 87491; 87591; 87808; 99284

== ENCOUNTER 2019-07-18 12:49 | Emergency (ER) | payer OTHER ==
[2019-07-18 12:54] VITALS: RESP 16
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
[2019-07-18 13:44] LABS: Amphetamine Screen,Urine Not Detected (NotDetected); Appearance,Urine Cloudy (Clear); Bacteria,Urine Moderate /hpf; Barbiturate Screen,Urine Not Detected (NotDetected); Benzodiazepines Screen,Urine Not Detected (NotDetected); Bilirubin,Urine Negative (Negative); Blood,Urine Moderate (Negative); Cocaine Screen,Urine Not Detected (NotDetected); Color,Urine Yellow; Glucose,Urine (UA) Negative (Negative); Ketones,Urine Negative (Negative); Leukocyte Esterase,Urine Large (Negative); Methadone Screen, Urine Not Detected (NotDetected); Mucus,Urine Few /hpf; Nitrite,Urine Positive (Negative); Opiate Screen,Urine Not Detected (NotDetected); Oxycodone Screen, Urine Not Detected (NotDetected); PH, Urine 6.5 (5.0-8.0); Phencyclidine Screen,Urine Not Detected (NotDetected); Protein,Urine 1+ (Negative); RBC,Urine 88 /hpf (0-5); Specific Gravity,Urine 1.022 (1.001-1.035); Squamous Epithelial Cell,Urine 4 /hpf (0-4); Tricyclic Antidepressant,Urine Not Detected (NotDetected); Urn Cannabinoid Scrn Detected (NotDetected); Urobilinogen,Urine <2.0 mg/dL (<2.0); WBC,Urine >182 /hpf (0-5)
[2019-07-18 14:13] VITALS: BP 118/70; PULSE 76; TEMP 98
== END 2019-07-18 14:13 | disposition home or self-care (01) ==
LOC: EC 12:49
DX: Z02.83 Encounter for blood-alcohol and blood-drug test (principal); N39.0 Urinary tract infection, site not specified; Z91.048 Other nonmedicinal substance allergy status
CPT/HCPCS: 80306; 81001; 81025; 87077; 87086; 87186; 99282

== ENCOUNTER 2019-12-23 11:55 | Emergency (ER) | payer OTHER ==
[2019-12-23] MEDS ORDERED: ONDANSETRON ODT 4 MG TAB PO STA (12:49)
[2019-12-23 12:50] LABS: Appearance,Urine Turbid (Clear); Bacteria,Urine Rare /hpf; Bilirubin,Urine Negative (Negative); Blood,Urine Moderate (Negative); Color,Urine Yellow; Glucose,Urine (UA) Negative (Negative); Ketones,Urine Trace (Negative); Leukocyte Esterase,Urine Large (Negative); Mucus,Urine Many /hpf; Nitrite,Urine Negative (Negative); Protein,Urine 2+ (Negative); RBC,Urine 98 /hpf (0-5); Specific Gravity,Urine 1.027 (1.001-1.035); Squamous Epithelial Cell,Urine 36 /hpf (0-4); WBC,Urine >182 /hpf (0-5)
--- NOTE | 2019-12-23 12:50 | ED ---
Female Urogenital HPI - General Chief complaint: Urogenital Stated complaint: UTI Time Seen by Provider: 12/23/19 12:08 Source: patient, RN notes reviewed Mode of arrival: ambulatory Limitations: no limitations - History of Present Illness Initial comments: 29-year-old female presents emergency Department chief complaint of urinary tract infection. Patient is dysuria last couple days. He states she's felt nauseated with no vomiting today states that she did have some emesis yesterday. She denies any fevers or chills no back or flank pain no chest pain no headache or dizziness. Patient states that she's had recurrent urinary tract infections. Patient denies any sick contacts no diarrhea no constipation. - Related Data Home Medications Medication Instructions Recorded Confirmed Ibuprofen [Motrin] 800 mg PO DIRECTED PRN 09/21/18 11/30/18 Norgestimate-Ethinyl Estradiol 1 tab PO DAILY 09/21/18 12/05/18 [Sprintec 28 Day Tablet] Previous Rx's Medication Instructions Recorded Cephalexin [Keflex] 500 mg PO Q12HR 5 Days #10 cap 06/28/19 Fluconazole [Diflucan] 150 mg PO ONCE 1 Days #1 tab 06/28/19 Sulfamethox-Tmp 800-160Mg [Bactrim 1 each PO Q12HR #14 tab 07/18/19 Ds] Cephalexin [Keflex] 500 mg PO Q8HR #21 cap 12/23/19 Allergies Allergy/AdvReac Type Severity Reaction Status Date / Time adhesive Allergy Rash/Hives Verified 12/23/19 12:18 Review of Systems ROS Statement: Those systems with pertinent positive or pertinent negative responses have been documented in the HPI. ROS Other: All systems not noted in ROS Statement are negative. Past Medical History Past Medical History: No Reported History Additional Past Medical History / Comment(s): hx hypoactive thyroid- no meds now History of Any Multi-Drug Resistant Organisms: None Reported Past Surgical History: Hysterectomy, Tubal Ligation Additional Past Surgical History / Comment(s): wisdom teeth Past Psychological History: Bipolar, Depression Past Alcohol Use History: Occasional Past Drug Use History: Marijuana - Past Family History Sister(s) Family Medical History: Neurologic Disorder, Seizure Disorder Additional Family Medical History / Comment(s): cerebral palsy Mother Family Medical History: Deep Vein Thrombosis (DVT) General Exam Limitations: no limitations General appearance: alert, in no apparent distress Head exam: Present: atraumatic, normocephalic, normal inspection Eye exam: Present: normal appearance, PERRL, EOMI. Absent: scleral icterus, conjunctival injection, periorbital swelling ENT exam: Present: normal exam, normal oropharynx, mucous membranes moist Neck exam: Present: normal inspection. Absent: tenderness, meningismus, lymphadenopathy Respiratory exam: Present: normal lung sounds bilaterally. Absent: respiratory distress, wheezes, rales, rhonchi, stridor Cardiovascular Exam: Present: regular rate, normal rhythm, normal heart sounds. Absent: systolic murmur, diastolic murmur, rubs, gallop, clicks GI/Abdominal exam: Present: soft, tenderness (Suprapubic), normal bowel sounds. Absent: distended, guarding, rebound, rigid Back exam: Absent: CVA tenderness (R), CVA tenderness (L) Neurological exam: Present: alert, oriented X3 Skin exam: Present: warm, dry, intact, normal color. Absent: rash Course Vital Signs 12/23/19 12:03 Temperature 97.7 F Pulse Rate 65 Respiratory 18 Rate Blood Pressure 103/68 O2 Sat by Pulse 99 Oximetry Medical Decision Making - Medical Decision Making Patient has evidence of urinary tract infection. Patient given Rocephin IM 1 g. Patient has recurrent urinary tract infections no flank pain afebrile. urinalysis cultured patient we discharged on Keflex return parameters were discussed. - Lab Data Lab Results 12/23/19 12/23/19 Range/Units 12:24 12:24 Urine Color Yellow Urine Appearance Turbid H (Clear) Urine pH 6.0 (5.0-8.0) Ur Specific [place] 1.027 (1.001-1.035) Urine Protein 2+ H (Negative) Urine Glucose (UA) Negative (Negative) Urine Ketones Trace H (Negative) Urine Blood Moderate H (Negative) Urine Nitrite Negative (Negative) Urine Bilirubin Negative (Negative) Urine Urobilinogen 4.0 (<2.0) mg/dL Ur Leukocyte Esterase Large H (Negative) Urine RBC 98 H (0-5) /hpf Urine WBC >182 H (0-5) /hpf Ur Squamous Epith Cells 36 H (0-4) /hpf Urine Bacteria Rare H (None) /hpf Urine Mucus Many H (None) /hpf Urine HCG, Qual Not Detected (Not Detectd) Disposition Clinical Impression: Urinary tract infection Disposition: HOME SELF-CARE Condition: Stable Instructions (If sedation given, give patient instructions): Urinary Tract Infection in Women (ED) Additional Instructions: Please return to the Emergency Department if symptoms worsen or any other concerns. Prescriptions: Cephalexin [Keflex] 500 mg PO Q8HR #21 cap Is patient prescribed a controlled substance at d/c from ED?: No Referrals: Luan Lee MD [Primary Care Provider] - 1-2 days Time of Disposition: 13:09
[2019-12-23] MEDS ORDERED: cefTRIAXone 1,000 MG VIAL (IM USE) IM STA (13:08)
[2019-12-23 13:18] VITALS: BP 133/76; PULSE 86; RESP 16; TEMP 98
== END 2019-12-23 13:16 | disposition home or self-care (01) ==
LOC: EC 11:55
DX: N39.0 Urinary tract infection, site not specified (principal); Z91.048 Other nonmedicinal substance allergy status; Z79.3 Long term (current) use of hormonal contraceptives; Z90.710 Acquired absence of both cervix and uterus; Z98.51 Tubal ligation status
CPT/HCPCS: 81001; 81025; 87086; 99283; 96372; J0696

== ENCOUNTER → 2020-01-25 | Outpatient (CLI) | payer OTHER | END | disposition home or self-care (01) | LOC: RADUSWWP 15:21 | PROVIDERS: ATTEND Family Medicine | DX: Z53.9 Procedure and treatment not carried out, unspecified reason (principal) ==

== ENCOUNTER 2020-03-08 21:27 | Emergency (ER) | payer OTHER ==
--- NOTE | 2020-03-08 22:22 | XR ---
EXAMINATION TYPE: XR chest 2V DATE OF EXAM: 03/08/2020 COMPARISON: 07/28/2007 HISTORY: Cough TECHNIQUE: FINDINGS: Heart and mediastinum are normal. Lungs are clear. Diaphragm is normal. Bony thorax appears normal IMPRESSION: Normal chest. No change
[2020-03-08 22:34] VITALS: BP 109/67; PULSE 69; RESP 19; TEMP 98
--- NOTE | 2020-03-08 22:42 | ED ---
URI HPI - General Chief Complaint: Upper Respiratory Infection Stated Complaint: dry cough Source: patient Mode of arrival: ambulatory Limitations: no limitations - History of Present Illness Initial Comments: 29-year-old female presenting today for chief complaint of cough. Patient states she's had cough and congestion for the past few days. She states the cough is very dry and she was concerned of a possible Coumadin infection. She denies sore throat or recorded fevers. Patient denies SOB, chest pain, or leg swelling. Patient denies hemoptysis. Denies additional complaints. Denies . Patient denies PMH concerning for immune compromise. - Related Data Home Medications Medication Instructions Recorded Confirmed No Known Home Medications 03/08/20 03/08/20 Allergies Allergy/AdvReac Type Severity Reaction Status Date / Time adhesive Allergy Rash/Hives Verified 03/08/20 21:38 Review of Systems ROS Statement: Those systems with pertinent positive or pertinent negative responses have been documented in the HPI. ROS Other: All systems not noted in ROS Statement are negative. Past Medical History Past Medical History: Thyroid Disorder Additional Past Medical History / Comment(s): hx hypoactive thyroid- no meds now History of Any Multi-Drug Resistant Organisms: None Reported Past Surgical History: Hysterectomy, Tubal Ligation Additional Past Surgical History / Comment(s): wisdom teeth Past Psychological History: Bipolar, Depression Smoking Status: Never smoker Past Alcohol Use History: Occasional Past Drug Use History: Marijuana - Past Family History Sister(s) Family Medical History: Neurologic Disorder, Seizure Disorder Additional Family Medical History / Comment(s): cerebral palsy Mother Family Medical History: Deep Vein Thrombosis (DVT) General Exam - General Exam Comments Initial Comments: General: The patient is awake and alert, in no distress, and does not appear acutely ill. Eye: Pupils are equal, round and reactive to light, extra-ocular movements are intact. No nystagmus. There is normal conjunctiva bilaterally. No signs of icterus. Ears, nose, mouth and throat: There are moist mucous membranes and no oral lesions. Cardiovascular: There is a regular rate and rhythm. No murmur, rub or gallop is appreciated. Respiratory: Lungs are clear to auscultation, respirations are non-labored, breath sounds are equal. No wheezes, stridor, rales, or rhonchi. Dry cough Musculoskeletal: Normal ROM, no tenderness. Strength 5/5. Sensation intact. Pulses equal bilaterally 2+. Neurological: A&O x 3. CN II-XII intact, There are no obvious motor or sensory deficits. Coordination appears grossly intact. Speech is normal. Skin: Skin is warm and dry and no rashes or lesions are noted. No LE edema. Psychiatric: Cooperative, appropriate mood & affect, normal judgment. Limitations: no limitations Course Vital Signs 03/08/20 03/08/20 21:36 22:33 Temperature 98.3 F 98 F Pulse Rate 81 69 Respiratory 20 19 Rate Blood Pressure 103/66 109/67 O2 Sat by Pulse 99 99 Oximetry Medical Decision Making - Medical Decision Making CXR clear. Lungs clears. VS stable. No hx of immune compromise. Does not appear toxic. Afebrile. Patient symptoms appear consistent with upper respiratory infection pt will be discharged with return parameters and pcp f/u. patient agreeable. - Lab Data Lab Results 03/08/20 03/08/20 03/08/20 Range/Units 22:26 22:26 22:26 Urine HCG, Qual Not Detected (Not Detectd) Coronavirus (PCR) Not Detected (Not Detected) Influenza Type A RNA Not Detected (Not Detectd) Influenza Type B (PCR) Not Detected (Not Detectd) Disposition Clinical Impression: Cough, Nasal congestion Disposition: HOME SELF-CARE Condition: Good Instructions (If sedation given, give patient instructions): Upper Respiratory Infection (ED) Additional Instructions: Please use medication as discussed. Please follow-up with family doctor in the next 2 days, Self quarantine for 7-10days, until symptoms free. Please return to emergency room if the symptoms increase or worsen or for any other concerns. Is patient prescribed a controlled substance at d/c from ED?: No Referrals: Luan Lee MD [Primary Care Provider] - 1-2 days Time of Disposition: 22:42
== END 2020-03-08 22:50 | disposition home or self-care (01) ==
LOC: EC 21:27
DX: R09.81 Nasal congestion (principal); R05 Cough; Z91.048 Other nonmedicinal substance allergy status; Z20.828 Contact with and (suspected) exposure to other viral communicable diseases
CPT/HCPCS: 81025; 87502; 71046; 99283; U0003

== ENCOUNTER 2020-06-28 11:58 | Emergency (ER) | payer OTHER ==
[2020-06-28 12:10] VITALS: BP 108/72; PULSE 72; RESP 16; TEMP 98.6
[2020-06-28] MEDS ORDERED: CYCLOBENZAPRINE 10 MG TAB PO STA (12:28)
[2020-06-28] MEDS ORDERED: KETOROLAC 15 MG/ML 1 ML VIAL IM STA (12:28)
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
--- NOTE | 2020-06-28 13:18 | XR ---
EXAMINATION TYPE: XR lumbar spine 2 or 3V DATE OF EXAM: 06/28/2020 CLINICAL HISTORY: pain TECHNIQUE: Three views of the lumbar spine are submitted. COMPARISON: None. FINDINGS: There are 5 lumbar type vertebral bodies identified. The lumbar spine shows satisfactory alignment w ithout evidence of acute fracture or dislocation. Vertebral body heights are within normal limits. Disc spaces are within normal limits. The overlying soft tissue appears unremarkable. IMPRESSION: No acute fracture or dislocation is seen in the lumbar spine. ICD 10 NO FRACTURE, INITIAL EVALUATION
== END 2020-06-28 13:33 | disposition home or self-care (01) ==
LOC: EC 11:58
DX: S39.012A Strain of muscle, fascia and tendon of lower back, initial encounter (principal); Z91.048 Other nonmedicinal substance allergy status; W18.09XA Striking against other object with subsequent fall, initial encounter; Y92.009 Unspecified place in unspecified non-institutional (private) residence as the place of occurrence of the external cause
CPT/HCPCS: 72100; 99283; 96372; J1885

== ENCOUNTER → 2020-07-23 | Outpatient (CLI) | payer OTHER ==
--- NOTE | 2020-07-24 08:24 | US ---
EXAMINATION TYPE: US pelvic complete DATE OF EXAM: 07/23/2020 COMPARISON: NONE CLINICAL HISTORY: 29-year-old female R10.2 Pelvic pain. Pain partial hysterectomy 2019 endometriosis TECHNIQUE: Transabdominal (TA). Transabdominal sonographic images of the pelvis were acquired. FINDINGS: EXAM MEASUREMENTS: Uterus: Surgically absent Right Ovary: 3.0 x 1.4 x 2.6 cm Left Ovary: 4.2 x 1.5 x 2.9 cm 1. Uterus Surgically absent 2. Endometrium: Surgically absent 3. Right Ovary: wnl 4. Left Ovary: wnl 5. Bilateral Adnexa: wnl 6. Posterior cul-de-sac: wnl IMPRESSION: Status post hysterectomy. No pelvic free fluid. No specific abnormality seen.
== END ==
LOC: RADUSWWP 16:24
PROVIDERS: ATTEND Family Medicine
DX: R10.2 Pelvic and perineal pain (principal); Z90.710 Acquired absence of both cervix and uterus
CPT/HCPCS: 76856

== ENCOUNTER 2020-11-11 14:29 | Emergency (ER) | payer OTHER ==
[2020-11-11 14:51] VITALS: BP 115/58; PULSE 71; RESP 16; TEMP 97.5
[2020-11-11] MEDS ORDERED: LIDOCAINE/EPINEPHR/TETRACAINE 5 ML BOTTLE TOPICAL ONE (16:50)
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
== END 2020-11-11 17:55 | disposition home or self-care (01) ==
LOC: EC 14:29
DX: S01.112A Laceration without foreign body of left eyelid and periocular area, initial encounter (principal); Z91.048 Other nonmedicinal substance allergy status; W51.XXXA Accidental striking against or bumped into by another person, initial encounter
CPT/HCPCS: 12011; 99282

== ENCOUNTER → 2021-02-20 | Outpatient (CLI) | payer OTHER ==
--- NOTE | 2021-02-20 11:54 | US ---
EXAMINATION TYPE: US abdomen complete DATE OF EXAM: 02/20/2021 COMPARISON: None CLINICAL HISTORY: 30-year-old female R10.9 Unspecified abdominal pain. Intermittent RUQ pain and naus ea x couple years TECHNIQUE: Multiple sonographic images of the abdomen are obtained. FINDINGS: EXAM MEASUREMENTS: Liver Length: 14.0 cm Gallbladder Wall: 0.1 cm CBD: 0.4 cm Spleen: 9.8 cm Right Kidney: 9.7 x 3.7 x 3.7 cm Left Kidney: 11.1 x 4.7 x 4.3 cm Pancreas: wnl Liver: wnl Gallbladder: wnl Evidence for sonographic Frias's sign: no CBD: wnl Spleen: wnl Right Kidney: Slightly smaller than the left side. No hydronephrosis. Left Kidney: No hydronephrosis. Upper IVC: wnl Abd Aorta: wnl IMPRESSION: Slightly smaller/atrophic right kidney compared to the left. Otherwise, unremarkable sonographic exam ination of the abdomen.
== END | disposition home or self-care (01) ==
LOC: RADUSWWP 07:44
PROVIDERS: ATTEND Family Medicine
DX: N26.1 Atrophy of kidney (terminal) (principal)
CPT/HCPCS: 76700

== ENCOUNTER 2021-09-17 06:57 | Emergency (ER) | payer OTHER ==
[2021-09-17 07:04] VITALS: BP 101/56; PULSE 60; RESP 19; TEMP 98
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
== END 2021-09-17 07:56 | disposition home or self-care (01) ==
LOC: EC 06:57
DX: S62.344A Nondisplaced fracture of base of fourth metacarpal bone, right hand, initial encounter for closed fracture (principal); Z91.048 Other nonmedicinal substance allergy status; W50.2XXA Accidental twist by another person, initial encounter
CPT/HCPCS: 29125; 99283

== ENCOUNTER → 2021-12-23 | Outpatient (CLI) | payer OTHER | END | disposition home or self-care (01) | LOC: LABWHC1 14:50 | PROVIDERS: ATTEND Family Medicine | DX: L68.0 Hirsutism (principal) | CPT/HCPCS: 36415; 83498; 84403 ==

== ENCOUNTER → 2022-01-26 | Outpatient (CLI) | payer OTHER ==
--- NOTE | 2022-01-26 13:59 | US ---
EXAMINATION TYPE: US pelvic complete DATE OF EXAM: 01/26/2022 COMPARISON: NONE CLINICAL HISTORY: L86.0 HIRSUTISM. TECHNIQUE: Transabdominal (TA). Date of LMP: Patient had hysterectomy 4 years prior EXAM MEASUREMENTS: Uterus: Surgically absent Endometrial Stripe: Surgically absent Right Ovary: 4.1 x 2.0 x 1.9 cm Left Ovary: 3.0 x 1.8 x 1.7 cm 1. Uterus: Surgically absent 2. Endometrium: Surgically absent 3. Right Ovary: wnl 4. Left Ovary: wnl 5. Bilateral Adnexa: wnl 6. Posterior cul-de-sac: minimal free fluid IMPRESSION: No evidence of acute pelvic process.
--- NOTE | 2022-01-26 14:00 | US ---
EXAMINATION TYPE: US abdomen limited DATE OF EXAM: 01/26/2022 COMPARISON: NONE CLINICAL HISTORY: L68.0 HIRSUTISM. Assess adrenal glands. Unable to visualize adrenal glands on today's ultrasound. IMPRESSION: Adrenal glands are not definitively visualized. Consider CT adrenal mass protocol with IV contrast fo r further evaluation.
== END | disposition home or self-care (01) ==
LOC: RADUSWWP 12:53
PROVIDERS: ATTEND Family Medicine
DX: L68.0 Hirsutism (principal)
CPT/HCPCS: 76705; 76856

== ENCOUNTER → 2022-03-18 | Outpatient (CLI) | payer OTHER ==
[2022-03-18 18:33] LABS: Testosterone 95.2 ng/mL (9.01-47.94)
== END | disposition home or self-care (01) ==
LOC: LABWHC1 12:05
PROVIDERS: ATTEND Family Medicine
DX: L68.0 Hirsutism (principal)
CPT/HCPCS: 36415; 82627; 84146; 84402; 84403

== ENCOUNTER → 2023-08-30 | Outpatient (CLI) | payer OTHER ==
[2023-08-30 15:41] LABS: Basophils # (A) 0.02 X 10*3/uL (0.00-0.10); Basophils % (A) 0.3 %; Eosinophils % (A) 1.4 %; HCT 40.4 % (37.2-46.3); HGB 13.3 g/dL (12.0-15.0); Lymphocytes # (A) 2.04 X 10*3/uL (0.90-5.00); Lymphocytes % (A) 28.7 %; MCH 32.5 pg (27.0-32.0); MCHC 32.9 g/dL (32.0-37.0); MCV 98.8 FL (80.0-97.0); Mean Platelet Volume 9.2 FL (9.5-12.2); Monocytes % (A) 4.2 %; NRBC Per 100 WBC 0 X 10*3/uL (0.00-0.01); Neutrophils # (A) 4.65 X 10*3/uL (1.80-7.70); Neutrophils % (A) 65.3 %; Platelet Count 242 X 10*3/uL (140-440); RBC 4.09 X 10*6/uL (4.10-5.20); RDW 12.2 % (11.5-14.5); WBC 7.12 X 10*3/uL (4.50-10.00)
[2023-08-30 15:59] LABS: Progesterone 3.8 ng/mL
[2023-08-30 16:06] LABS: ALT 11 U/L (8-44); AST 13 U/L (13-35); Albumin 5.1 g/dL (3.8-4.9); Albumin/Globulin Ratio 2.04 Ratio (1.60-3.17); Alkaline Phosphatase 49 U/L (41-126); BUN/Creat Ratio 24.12 Ratio (12.00-20.00); Blood Urea Nitrogen 19.3 mg/dL (9.0-27.0); Calcium 9.6 mg/dL (8.7-10.3); Carbon Dioxide 25.4 mmol/L (21.6-31.8); Chloride 102 mmol/L (96-109); Chol/HDL Ratio 2.62 Ratio; Globulin 2.5 g/dL (1.6-3.3); Glucose 87 mg/dL (70-110); LDL Cholesterol,Calculated 95.5 mg/dL (0.0-131.0); Potassium 3.7 mmol/L (3.5-5.5); Sodium 141 mmol/L (135-145); Total Bilirubin 0.7 mg/dL (0.3-1.2); Total Protein 7.6 g/dL (6.2-8.2)
[2023-08-30 16:22] LABS: Follicle Stimulating Hormone 3.3 mIU/mL; Luteinizing Hormone 2.3 mIU/mL
== END | disposition home or self-care (01) ==
LOC: LABWHC1 10:58
PROVIDERS: ATTEND Family Medicine
DX: E27.9 Disorder of adrenal gland, unspecified (principal)
CPT/HCPCS: 36415; 80053; 80061; 82306; 82627; 82672; 83001; 83002; 83036; 84144; 84402; 84403; 84443; 85025

== ENCOUNTER → 2023-11-24 | Outpatient (CLI) | payer OTHER | END | disposition home or self-care (01) | LOC: LABWHC1 10:26 | PROVIDERS: ATTEND Nurse Practitioner Family | DX: E27.9 Disorder of adrenal gland, unspecified (principal) | CPT/HCPCS: 36415; 84402; 84403 ==

== ENCOUNTER 2024-02-21 10:19 | Emergency (ER) | payer OTHER ==
[2024-02-21 10:24] VITALS: TEMP 97.8
[2024-02-21] MEDS: KETOROLAC 15 MG/ML 1 ML VIAL IVP STA (12:33)
[2024-02-21] MEDS: ONDANSETRON 4 MG/2 ML VIAL IVP STA (12:34)
[2024-02-21] MEDS: SODIUM CHLORIDE 0.9% 1,000 ML IV STA (12:42)
[2024-02-21 12:55] LABS: Appearance,Urine Cloudy (Clear); Bilirubin,Urine Negative (Negative); Blood,Urine Negative (Negative); Color,Urine Yellow; Glucose,Urine (UA) Negative (Negative); Ketones,Urine 4+ (Negative); Leukocyte Esterase,Urine Negative (Negative); Nitrite,Urine Negative (Negative); PH, Urine 6.5 (5.0-8.0); Protein,Urine Trace (Negative); Specific Gravity,Urine 1.026 (1.001-1.035)
[2024-02-21 12:56] LABS: Mucus,Urine Many /hpf; Squamous Epithelial Cell,Urine 22 /hpf (0-4); WBC,Urine 3 /hpf (0-5)
[2024-02-21 13:00] LABS: ALT 13 U/L (4-34); AST 25 U/L (14-36); African American GFR (CKD) >90 (>60 ml/min/1.73 sqM); Albumin 4.8 g/dL (3.5-5.0); Alkaline Phosphatase 44 U/L (38-126); Amylase 49 U/L (30-110); Anion Gap 11 mmol/L; Blood Urea Nitrogen 17 mg/dL (7-17); Calcium 9.6 mg/dL (8.4-10.2); Carbon Dioxide 24 mmol/L (22-30); Chloride 104 mmol/L (98-107); Glucose 73 mg/dL (74-99); Lipase 58 U/L (23-300); Non-African American GFR(CKD) >90 (>60 ml/min/1.73 sqM); Potassium 3.8 mmol/L (3.5-5.1); Sodium 139 mmol/L (137-145); Total Bilirubin 0.8 mg/dL (0.2-1.3); Total Protein 7.5 g/dL (6.3-8.2)
[2024-02-21 13:07] LABS: Basophils % (A) 0 %; Eosinophils # (A) 0.1 k/uL (0-0.7); Eosinophils % (A) 1 %; HCT 40.8 % (34.0-46.0); Lymphocytes # (A) 1.1 k/uL (1.0-4.8); Lymphocytes % (A) 17 %; MCH 33.1 pg (25.0-35.0); MCHC 34.2 g/dL (31.0-37.0); MCV 96.7 fL (80.0-100.0); Mean Platelet Volume 7.3; Monocytes # (A) 0.2 k/uL (0-1.0); Monocytes % (A) 3 %; Neutrophils # (A) 5.4 k/uL (1.3-7.7); Neutrophils % (A) 78 %; Platelet Count 272 k/uL (150-450); RBC 4.21 m/uL (3.80-5.40); RDW 12.5 % (11.5-15.5); WBC 6.9 k/uL (3.8-10.6)
--- NOTE | 2024-02-21 13:51 | US ---
EXAMINATION TYPE: US gallbladder DATE OF EXAM: 02/21/2024 COMPARISON: 01/26/2022 CLINICAL INDICATION: Female, 33 years old with history of RUQ abd pain; patient has felt "organ" on t he right side of abdomen since a young age and it hurts now TECHNIQUE: Grayscale and color Doppler imaging of the right upper quadrant was performed. FINDINGS: EXAM MEASUREMENTS: Liver Length: 13.6 cm Gallbladder Wall: 0.1 cm CBD: 0.5 cm Right Kidney: 9.3 x 4.2 x 4.9cm Pancreas: Only a small portion of the pancreatic tail is obscured by bowel gas shadowing. Visualized portions show no gross abnormality. Liver: No focal lesion or intrahepatic biliary ductal dilatation. Gallbladder: No abnormal distention, wall thickening, pericholecystic fluid, or shadowing calculi. Evidence for sonographic Frias's sign: no CBD: wnl Right Kidney: wnl [employer] notes:scanned AOC on right side of abdomen, no abnormality to account for patient's sym ptoms. IMPRESSION: 1. No gallstones or biliary ductal dilatation. 2. No specific abnormality seen. Additional targeted scanning at the patient's right-sided area of co ncern. [facility], , 02/21/2024 1:48 PM
[2024-02-21] MEDS: HYDROmorphone 1 MG/ML 1 ML SYRINGE IVP STA (14:22)
[2024-02-21] MEDS: METOCLOPRAMIDE 5 MG/ML 2 ML VIAL IVP STA (14:24)
--- NOTE | 2024-02-21 14:52 | ED ---
Abdominal Pain HPI - General Chief Complaint: Abdominal Pain Stated Complaint: Abd pain, body aches, vomiting Time Seen by Provider: 02/21/24 14:51 Source: patient Mode of arrival: ambulatory Limitations: no limitations - History of Present Illness Initial Comments: 33-year-old female presented to the ER with a chief complaint abdominal pain. Patient reports this is been chronic in nature but for the past 3 days she has been endorsing nausea and vomiting. She does report low-grade fevers and chills. She has tried Zofran without relief. She is also reported diarrhea. She denies any melena, hematochezia or hematic emesis. No other complaints. - Related Data Previous Rx's Medication Instructions Recorded predniSONE 50 mg PO DAILY #5 tab 06/28/20 Ondansetron Odt [Zofran Odt] 4 mg PO Q8HR PRN #10 tab 02/21/24 Allergies Allergy/AdvReac Type Severity Reaction Status Date / Time adhesive Allergy Rash/Hives Verified 02/21/24 10:24 Review of Systems ROS Statement: Those systems with pertinent positive or pertinent negative responses have been documented in the HPI. ROS Other: All systems not noted in ROS Statement are negative. Past Medical History Past Medical History: Thyroid Disorder Additional Past Medical History / Comment(s): hx hypoactive thyroid- no meds now History of Any Multi-Drug Resistant Organisms: None Reported Past Surgical History: Hysterectomy, Tubal Ligation Additional Past Surgical History / Comment(s): wisdom teeth Past Psychological History: Bipolar, Depression Smoking Status: Never smoker Past Alcohol Use History: Occasional Past Drug Use History: Marijuana - Past Family History Sister(s) Family Medical History: Neurologic Disorder, Seizure Disorder Additional Family Medical History / Comment(s): cerebral palsy Mother Family Medical History: Deep Vein Thrombosis (DVT) General Exam Limitations: no limitations General appearance: alert, in no apparent distress Respiratory exam: Present: normal lung sounds bilaterally. Absent: respiratory distress, wheezes, rales, rhonchi, stridor Cardiovascular Exam: Present: regular rate, normal rhythm, normal heart sounds. Absent: systolic murmur, diastolic murmur, rubs, gallop, clicks GI/Abdominal exam: Present: soft, tenderness (Right upper quadrant), normal bowel sounds Extremities exam: Present: normal inspection, full ROM, normal capillary refill. Absent: tenderness, pedal edema, joint swelling, calf tenderness Neurological exam: Present: alert, oriented X3, CN II-XII intact Skin exam: Present: warm, dry, intact, normal color. Absent: rash Course Vital Signs 02/21/24 02/21/24 10:22 15:51 Temperature 97.8 F Pulse Rate 88 53 L Respiratory 20 16 Rate Blood Pressure 105/72 104/62 O2 Sat by Pulse 99 100 Oximetry Medical Decision Making - Medical Decision Making Was pt. sent in by a medical professional or institution (, PA, CNA PER DIEM, urgent care, hospital, or intermediate...) When possible be specific @ -No Did you speak to anyone other than the patient for history (EMS, parent, family, police, friend...)? What history was obtained from this source @ -No Did you review nursing and triage notes (agree or disagree)? Why? @ -I reviewed and agree with nursing and triage notes Were old charts reviewed (outside hosp., previous admission, EMS record, old EKG, old radiological studies, urgent care reports/EKG's, intermediate records)? Report findings @ -No old charts were reviewed Differential Diagnosis (chest pain, altered mental status, abdominal pain women, abdominal pain men, vaginal bleeding, weakness, fever, dyspnea, syncope, headache, dizziness, GI bleed, back pain, seizure, CVA, palpatations, mental health, musculoskeletal)? @ -Differential Abdominal Pain Women: Appendicitis, Cholecystitis, diverticulosis, ischemic bowel, pancreatitis, hepatitis, UTI, gastroenteritis, AAA, incarcerated hernia, bowel obstruction, constipation, inflammatory bowel, hepatitis, peptic ulcer disease, splenic infarction, perforated viscus, vulvitis, ovarian torsion, PID, kidney stone, placenta abruption, this is not meant to be an all-inclusive list EKG interpreted by me (3pts min.). @ -None done X-rays interpreted by me (1pt min.). @ -None done CT interpreted by me (1pt min.). @ -None done U/S interpreted by me (1pt. min.). @ -Gallbladder ultrasound negative for acute process. Area of concern with no specific abnormality seen. What testing was considered but not performed or refused? (CT, X-rays, U/S, labs)? Why? @ -None What meds were considered but not given or refused? Why? @ -None Did you discuss the management of the patient with other professionals (pr ofessionals i.e. , PA, CNA PER DIEM, lab, RT, psych nurse, social media marketing specialist, social sciences professor, teacher, hospital admissions officer, adult protective caseworker)? Give summary @ -No Was smoking cessation discussed for >3mins.? @ -No Was critical care preformed (if so, how long)? @ -No Were there social determinants of health that impacted care today? How? (Homelessness, low income, unemployed, alcoholism, drug addiction, transportation, low edu. Level, literacy, decrease access to med. care, senior living, rehab)? @ -No Was there de-escalation of care discussed even if they declined (Discuss DNR or withdrawal of care, Hospice)? DNR status @ -No What co-morbidities impacted this encounter? (DM, HTN, Smoking, COPD, CAD, Cancer, CVA, ARF, Chemo, Hep., AIDS, mental health diagnosis, sleep apnea, morbid obesity)? @ -None Was patient admitted / discharged? Hospital course, mention meds given and route, prescriptions, significant lab abnormalities, going to OR and other pertinent info. @ -Discharge. 33-year-old female presented to ER with a chief complaint of abdominal pain. History and physical exam completed. Vitals within normal limits. Patient in no signs of acute distress. Exam remarkable for tenderness to the right upper quadrant. Normal bowel sounds with no rebound or guarding. Laboratory studies obtained unremarkable. Urinalysis showing 4+ ketones which is likely related to dehydration. Viral swabs negative. Ultrasound negative. Patient received symptomatic treatment in the ER, with improvement. Upon r eevaluation, patient resting comfortably in exam room no signs of acute distress. Results discussed with patient, all questions answered. Zofran prescribed. Advise close follow-up with PCP. Return parameters discussed. Patient discharged stable condition. Patient verbally expressed understanding agree with care plan. Case discussed with ED attending by Dr. Lee. Undiagnosed new problem with uncertain prognosis? @ -No Drug Therapy requiring intensive monitoring for toxicity (Heparin, Nitro, Insulin, Cardizem)? @ -No Were any procedures done? @ -No Diagnosis/symptom? @ -Abdominal pain Acute, or Chronic, or Acute on Chronic? @ -Acute Uncomplicated (without systemic symptoms) or Complicated (systemic symptoms)? @ -Uncomplicated Side effects of treatment? @ -No Exacerbation, Progression, or Severe Exacerbation? @ -No Poses a threat to life or bodily function? How? (Chest pain, USA, NV, pneumonia, PE, COPD, DKA, ARF, appy, cholecystitis, CVA, Diverticulitis, Homicidal, Suicidal, threat to staff... and all critical care pts) @ -No - Lab Data Result diagrams: 02/21/24 12:37 02/21/24 12:37 Lab Results 02/21/24 02/21/24 02/21/24 Range/Units 12:37 12:37 12:37 WBC 6.9 (3.8-10.6) k/uL RBC 4.21 (3.80-5.40) m/uL Hgb 14.0 (11.4-16.0) gm/dL Hct 40.8 (34.0-46.0) % MCV 96.7 (80.0-100.0) fL MCH 33.1 (25.0-35.0) pg MCHC 34.2 (31.0-37.0) g/dL RDW 12.5 (11.5-15.5) % Plt Count 272 (150-450) k/uL MPV 7.3 Neutrophils % 78 % Lymphocytes % 17 % Monocytes % 3 % Eosinophils % 1 % Basophils % 0 % Neutrophils # 5.4 (1.3-7.7) k/uL Lymphocytes # 1.1 (1.0-4.8) k/uL Monocytes # 0.2 (0-1.0) k/uL Eosinophils # 0.1 (0-0.7) k/uL Basophils # 0.0 (0-0.2) k/uL Sodium 139 (137-145) mmol/L Potassium 3.8 (3.5-5.1) mmol/L Chloride 104 (98-107) mmol/L Carbon Dioxide 24 (22-30) mmol/L Anion Gap 11 mmol/L BUN 17 (7-17) mg/dL Creatinine 0.63 (0.52-1.04) mg/dL Est GFR (CKD-EPI)AfAm >90 (>60 ml/min/1.73 sqM) Est GFR (CKD-EPI)NonAf >90 (>60 ml/min/1.73 sqM) Glucose 73 L (74-99) mg/dL Plasma Lactic Acid Rai 0.7 (0.7-2.0) mmol/L Calcium 9.6 (8.4-10.2) mg/dL Total Bilirubin 0.8 (0.2-1.3) mg/dL AST 25 (14-36) U/L ALT 13 (4-34) U/L Alkaline Phosphatase 44 (38-126) U/L Total Protein 7.5 (6.3-8.2) g/dL Albumin 4.8 (3.5-5.0) g/dL Amylase 49 (30-110) U/L Lipase 58 (23-300) U/L Urine Color Urine Appearance (Clear) Urine pH (5.0-8.0) Ur Specific Winifred (1.001-1.035) Urine Protein (Negative) Urine Glucose (UA) (Negative) Urine Ketones (Negative) Urine Blood (Negative) Urine Nitrite (Negative) Urine Bilirubin (Negative) Urine Urobilinogen (<2.0) mg/dL Ur Leukocyte Esterase (Negative) Urine WBC (0-5) /hpf Ur Squamous Epith Cells (0-4) /hpf Urine Mucus (None) /hpf Influenza Type A (PCR) (Not Detectd) Influenza Type B (PCR) (Not Detectd) RSV (PCR) (Not Detectd) SARS-CoV-2 (PCR) (Not Detectd) 02/21/24 02/21/24 Range/Units 12:37 12:44 WBC (3.8-10.6) k/uL RBC (3.80-5.40) m/uL Hgb (11.4-16.0) gm/dL Hct (34.0-46.0) % MCV (80.0-100.0) fL MCH (25.0-35.0) pg MCHC (31.0-37.0) g/dL RDW (11.5-15.5) % Plt Count (150-450) k/uL MPV Neutrophils % % Lymphocytes % % Monocytes % % Eosinophils % % Basophils % % Neutrophils # (1.3-7.7) k/uL Lymphocytes # (1.0-4.8) k/uL Monocytes # (0-1.0) k/uL Eosinophils # (0-0.7) k/uL Basophils # (0-0.2) k/uL Sodium (137-145) mmol/L Potassium (3.5-5.1) mmol/L Chloride (98-107) mmol/L Carbon Dioxide (22-30) mmol/L Anion Gap mmol/L BUN (7-17) mg/dL Creatinine (0.52-1.04) mg/dL Est GFR (CKD-EPI)AfAm (>60 ml/min/1.73 sqM) Est GFR (CKD-EPI)NonAf (>60 ml/min/1.73 sqM) Glucose (74-99) mg/dL Plasma Lactic Acid Rai (0.7-2.0) mmol/L Calcium (8.4-10.2) mg/dL Total Bilirubin (0.2-1.3) mg/dL AST (14-36) U/L ALT (4-34) U/L Alkaline Phosphatase (38-126) U/L Total Protein (6.3-8.2) g/dL Albumin (3.5-5.0) g/dL Amylase (30-110) U/L Lipase (23-300) U/L Urine Color Yellow Urine Appearance Cloudy H (Clear) Urine pH 6.5 (5.0-8.0) Ur Specific Winifred 1.026 (1.001-1.035) Urine Protein Trace H (Negative) Urine Glucose (UA) Negative (Negative) Urine Ketones 4+ H (Negative) Urine Blood Negative (Negative) Urine Nitrite Negative (Negative) Urine Bilirubin Negative (Negative) Urine Urobilinogen 3.0 (<2.0) mg/dL Ur Leukocyte Esterase Negative (Negative) Urine WBC 3 (0-5) /hpf Ur Squamous Epith Cells 22 H (0-4) /hpf Urine Mucus Many H (None) /hpf Influenza Type A (PCR) Not Detected (Not Detectd) Influenza Type B (PCR) Not Detected (Not Detectd) RSV (PCR) Not Detected (Not Detectd) SARS-CoV-2 (PCR) Not Detected (Not Detectd) - Radiology Data Radiology results: report reviewed, image reviewed Disposition Clinical Impression: Abdominal pain Disposition: HOME SELF-CARE Condition: Stable Instructions (If sedation given, give patient instructions): Abdominal Pain (ED) Additional Instructions: Follow-up with PCP. Return to the ER for any new or worsening concerns. Prescriptions: Ondansetron Odt [Zofran Odt] 4 mg PO Q8HR PRN #10 tab PRN Reason: Nausea Is patient prescribed a controlled substance at d/c from ED?: No Referrals: Luan Lee MD [Primary Care Provider] - 1-2 days Time of Disposition: 14:52
[2024-02-21 15:53] VITALS: BP 104/62; PULSE 53; RESP 16
== END 2024-02-21 15:54 | disposition home or self-care (01) ==
LOC: EC 10:19
CPT/HCPCS: 36415; 76705; 80053; 81001; 82150; 83605; 83690; 85025; 87636; 96361; 96374; 96375; 99284